=== PATIENT | female | born 1960 | race Caucasian/White ===

== ENCOUNTER 2018-06-13 14:36 | Emergency (ER) | payer OTHER ==
--- NOTE | 2018-06-13 15:56 | RAD REPORT ---
EXAM DESCRIPTION: RAD - Hand Left 3 View - 06/13/2018 3:51 pm CLINICAL HISTORY: Pain;Swelling COMPARISON: No comparisons FINDINGS: No bone or joint abnormality of the left hand is seen.
--- NOTE | 2018-06-13 16:06 | ER ---
Nurse's Notes [facility] Name: Jeanette Valencia Age: 57 yrs Sex: Female : 1960 Arrival Date: 06/13/2018 Time: 14:40 Bed Treatment Private MD: Trino Huston H Diagnosis: Pain in left hand Presentation: 06/13 14:52 Presenting complaint: Patient states: Left hand pain and swelling since this morning. hb Denies injury. Transition of care: patient was not received from another setting of care. Onset of symptoms was June 13, 2018. Risk Assessment: Do you want to hurt yourself or someone else? Patient reports no desire to harm self or others. Initial Sepsis Screen: Does the patient meet any 2 criteria? No. Patient's initial sepsis screen is negative. Does the patient have a suspected source of infection? No. Patient's initial sepsis screen is negative. Care prior to arrival: None. 14:52 Method Of Arrival: Ambulatory hb 14:52 Acuity: CRISTIAN 4 hb Historical: - Allergies: 14:54 Codeine; hb - Home Meds: 14:54 None [Active]; hb - PMHx: 14:54 None; hb - PSHx: 14:54 ; hb - Immunization history:: Adult Immunizations up to date. - Social history:: Smoking status: Patient/guardian denies using tobacco. - Ebola Screening: : No symptoms or risks identified at this time. Screenin:00 Abuse screen: Denies threats or abuse. Denies injuries from another. Nutritional hb screening: No deficits noted. Tuberculosis screening: No symptoms or risk factors identified. Fall Risk None identified. Assessment: 15:00 General: Appears in no apparent distress. Behavior is calm, cooperative. Pain: Pain hb currently is 8 out of 10 on a pain scale. Neuro: Level of Consciousness is awake, alert, obeys commands, Oriented to person, place, time, situation. Cardiovascular: Capillary refill < 3 seconds Patient's skin is warm and dry. Respiratory: Airway is patent Trachea midline Respiratory effort is even, unlabored, Respiratory pattern is regular, symmetrical. GI: No signs and/or symptoms were reported involving the gastrointestinal system. : No signs and/or symptoms were reported regarding the genitourinary system. EENT: No signs and/or symptoms were reported regarding the EENT system. Derm: Skin is intact, is healthy with good turgor. Musculoskeletal: swelling noted to right hand. Vital Signs: 14:53 BP 145 / 93; Pulse 99; Resp 18; Temp 97.8; Pulse Ox 99% on R/A; Pain 8/10; hb ED Course: 14:40 Patient arrived in ED. sb2 14:41 Trino Huston DO is Private Physician. sb2 14:53 Triage completed. hb 14:53 Arm band placed on. hb 14:55 Dominic Montilla PA is PHCP. cp 14:55 Magan Viramontes MD is Attending Physician. cp 15:00 Patient has correct armband on for positive identification. Call light in reach. hb 15:22 Gisella Rosales RN is Primary Nurse. ss 15:23 No provider procedures requiring assistance completed. Patient did not have IV access hb during this emergency room visit. 15:52 XRAY Hand LEFT 3 View In Process Unspecified. EDMS Administered Medications: No medications were administered Outcome: 16:06 Discharge ordered by MD. cp 16:17 Discharged to home ambulatory. ss 16:17 Condition: good 16:17 Discharge instructions given to patient, family, Instructed on discharge instructions, follow up and referral plans. medication usage, Demonstrated understanding of instructions, follow-up care, medications, Prescriptions given X 1. 16:17 Patient left the ED. ss Signatures: Dispatcher [employer] EDMS Gisella Rosales RN RN Dominic Montilla PA PA cp Baxter, Heather, RN RN Natividad Lucia sb2
--- NOTE | 2018-06-13 16:06 | EDPHYS ---
Physician Documentation [facility] Name: Jeanette Valencia Age: 57 yrs Sex: Female : 1960 Arrival Date: 06/13/2018 Time: 14:40 Bed Treatment Private MD: Trino Huston H ED Physician Magan Viramontes HPI: 06/13 15:25 This 57 yrs old Female presents to ER via Ambulatory with complaints of Hand cp Swelling, Hand Pain. 15:25 The patient or guardian reports pain, swelling, tenderness. cp 15:25 The complaints affect the left hypothenar area. cp 15:25 Onset: The symptoms/episode began/occurred today. Modifying factors: the symptoms are cp aggravated by movement. Associated signs and symptoms: Pertinent negatives: cyanosis distally, decreased sensation distally, fever. Severity of symptoms: in the emergency department the symptoms are unchanged. Historical: - Allergies: 14:54 Codeine; hb - Home Meds: 14:54 None [Active]; hb - PMHx: 14:54 None; hb - PSHx: 14:54 ; hb - Immunization history:: Adult Immunizations up to date. - Social history:: Smoking status: Patient/guardian denies using tobacco. - Ebola Screening: : No symptoms or risks identified at this time. ROS: 15:30 Constitutional: Negative for body aches, chills, fever. cp 15:30 ENT: Negative for drainage from ear(s), ear pain, sore throat, difficulty swallowing, cp difficulty handling secretions. 15:30 Cardiovascular: Negative for chest pain, palpitations. 15:30 Respiratory: Negative for cough, shortness of breath, wheezing. 15:30 Abdomen/GI: Negative for abdominal pain, nausea, vomiting, and diarrhea. 15:30 MS/extremity: Positive for pain, swelling, tenderness, of the left hand, Negative for injury or acute deformity, paresthesias. 15:30 Skin: Negative for cellulitis, rash. 15:30 Neuro: Negative for headache, numbness, tingling, weakness. 15:30 All other systems are negative. Exam: 15:35 Constitutional: The patient appears in no acute distress, alert, awake, cp non-diaphoretic, well developed, well nourished. 15:35 Head/Face: Normocephalic, atraumatic. cp 15:35 Eyes: Periorbital structures: appear normal, Conjunctiva: normal, no exudate, no injection, Lids and lashes: appear normal, bilaterally. 15:35 ENT: External ear(s): are unremarkable, Nose: is normal, Mouth: is normal. 15:35 Chest/axilla: Inspection: normal. 15:35 Cardiovascular: Rate: normal. 15:35 Respiratory: the patient does not display signs of respiratory distress, Respirations: normal, no use of accessory muscles, no retractions, no splinting, no tachypnea. 15:35 Musculoskeletal/extremity: Extremities: grossly normal except: noted in the left hand rizo side hypothenar eminence: pain, swelling, There is no evidence of injury. 15:35 Musculoskeletal/extremity: ROM: full active range of motion, in the left hand, Perfusion: the extremity is normally perfused throughout, Sensation intact. 15:35 Skin: cellulitis, is not appreciated, no rash present. Vital Signs: 14:53 BP 145 / 93; Pulse 99; Resp 18; Temp 97.8; Pulse Ox 99% on R/A; Pain 8/10; hb MDM: 14:55 Patient medically screened. cp 16:00 Differential diagnosis: closed fracture, contusion, tendonitis, cellulitis. cp 16:05 Data reviewed: vital signs, nurses notes, radiologic studies, plain films, and as a cp result, I will discharge patient. 16:05 Test interpretation: by ED physician or midlevel provider: plain radiologic studies. cp Counseling: I had a detailed discussion with the patient and/or guardian regarding: the historical points, exam findings, and any diagnostic results supporting the discharge/admit diagnosis, radiology results, the need for outpatient follow up, a family practitioner, to return to the emergency department if symptoms worsen or persist or if there are any questions or concerns that arise at home. 06/13 15:22 Order name: XRAY Hand LEFT 3 View; Complete Time: 16:07 cp 06/13 16:07 Interpretation: Report reviewed. 06/13 16:05 Order name: Wrist Splint: left; Complete Time: 16:08 cp Administered Medications: No medications were administered Disposition: 16:30 Chart complete. cp 17:58 Co-signature as Attending Physician, Magan Viramontes MD. rn Disposition: 06/13/18 16:06 Discharged to Home. Impression: Pain in left hand. - Condition is Stable. - Discharge Instructions: Hand Pain. - Prescriptions for Naprosyn 500 mg Oral Tablet - take 1 tablet by ORAL route 2 times per day take with food; 20 tablet. - Medication Reconciliation Form, Thank You Letter, Antibiotic Education, Prescription Opioid Use, Work release form form. - Follow up: Private Physician; When: 2 - 3 days; Reason: Recheck today's complaints. - Problem is new. - Symptoms have improved. Signatures: Dispatcher [employer] EDMS Magan Viramontes MD MD rn Smirch, Shelby, RN RN ss Dominic Montilla PA PA cp Baxter, Heather, RN RN Corrections: (The following items were deleted from the chart) 16:04 15:25 The complaints affect the hyperthenar area, cp cp 16:17 16:06 06/13/2018 16:06 Discharged to Home. Impression: Pain in left hand. Condition is ss Stable. Forms are Work release form, Medication Reconciliation Form, Thank You Letter, Antibiotic Education, Prescription Opioid Use. Follow up: Private Physician; When: 2 - 3 days; Reason: Recheck today's complaints. Problem is new. Symptoms have improved. cp
== END 2018-06-13 16:17 | disposition home or self-care (01) ==
LOC: ER 14:36
DX: M79.642 Pain in left hand (principal)
CPT/HCPCS: 99283

== ENCOUNTER 2019-05-01 05:43 | Emergency (ER) | payer OTHER ==
--- NOTE | 2019-05-01 06:32 | EDPHYS ---
Physician Documentation [facility] Name: Jeanette Valencia Age: 58 yrs Sex: Female : 1960 Arrival Date: 05/01/2019 Time: 05:48 Bed 13 Private MD: ED Physician Shilo Ramirez HPI: 05/01 06:37 This 58 yrs old Female presents to ER via Ambulatory with complaints of jr8 Congestion, Cough. 06:37 The patient or guardian reports cough, that is intermittent, described as mild, with jr8 productive sputum, that is yellow. Onset: The symptoms/episode began/occurred gradually, 4 day(s) ago. Severity of symptoms: At their worst the symptoms were mild, in the emergency department the symptoms are unchanged. Modifying factors: The symptoms are alleviated by nothing, the symptoms are aggravated by nothing. Associated signs and symptoms: Pertinent positives: rhinorrhea, sore throat. The patient has experienced similar episodes in the past, a few times. The patient has not recently seen a physician. Historical: - Allergies: 05:51 Codeine; jb4 - Home Meds: 05:51 Vitamin D Oral [Active]; Robitussin PE Oral [Active]; jb4 - PMHx: 05:51 Hypertension; jb4 - PSHx: 05:51 ; cateract; jb4 - Immunization history:: Adult Immunizations up to date. - Social history:: Smoking status: Patient/guardian denies using tobacco, Patient/guardian denies using alcohol. - Ebola Screening: : No symptoms or risks identified at this time. ROS: 06:37 Eyes: Negative for injury, pain, redness, and discharge, Neck: Negative for injury, jr8 pain, and swelling, Cardiovascular: Negative for chest pain, palpitations, and edema, Abdomen/GI: Negative for abdominal pain, nausea, vomiting, diarrhea, and constipation, Back: Negative for injury and pain, MS/Extremity: Negative for injury and deformity, Skin: Negative for injury, rash, and discoloration, Neuro: Negative for headache, weakness, numbness, tingling, and seizure. 06:37 ENT: Positive for rhinorrhea, sinus congestion, sore throat. 06:37 Respiratory: Positive for cough, wheezing, Negative for dyspnea on exertion, shortness of breath. Exam: 06:37 Eyes: Pupils equal round and reactive to light, extra-ocular motions intact. Lids and jr8 lashes normal. Conjunctiva and sclera are non-icteric and not injected. Cornea within normal limits. Periorbital areas with no swelling, redness, or edema. ENT: Nares patent. No nasal discharge, no septal abnormalities noted. Tympanic membranes are normal and external auditory canals are clear. Oropharynx with no redness, swelling, or masses, exudates, or evidence of obstruction, uvula midline. Mucous membranes moist. Neck: Trachea midline, no thyromegaly or masses palpated, and no cervical lymphadenopathy. Supple, full range of motion without nuchal rigidity, or vertebral point tenderness. No Meningismus. Cardiovascular: Regular rate and rhythm with a normal S1 and S2. No gallops, murmurs, or rubs. Normal PMI, no JVD. No pulse deficits. Respiratory: Lungs have equal breath sounds bilaterally, clear to auscultation and percussion. No rales, rhonchi or wheezes noted. No increased work of breathing, no retractions or nasal flaring. Abdomen/GI: Soft, non-tender, with normal bowel sounds. No distension or tympany. No guarding or rebound. No evidence of tenderness throughout. Back: No spinal tenderness. No costovertebral tenderness. Full range of motion. Skin: Warm, dry with normal turgor. Normal color with no rashes, no lesions, and no evidence of cellulitis. MS/ Extremity: Pulses equal, no cyanosis. Neurovascular intact. Full, normal range of motion. Neuro: Awake and alert, GCS 15, oriented to person, place, time, and situation. Cranial nerves II-XII grossly intact. Motor strength 5/5 in all extremities. Sensory grossly intact. Cerebellar exam normal. Normal gait. Vital Signs: 05:51 BP 163 / 82; Pulse 82; Resp 16; Temp 98.1(O); Pulse Ox 97% on R/A; Weight 90.72 kg (R); jb4 Height 5 ft. 0 in. (152.40 cm) (R); Pain 2/10; 05:51 Body Mass Index 39.06 (90.72 kg, 152.40 cm) jb4 MDM: 06:19 Patient medically screened. jr8 06:29 Data reviewed: vital signs, nurses notes, and as a result, I will discharge patient. jr8 Data interpreted: Pulse oximetry: on room air is 97 %. Interpretation: normal. Counseling: I had a detailed discussion with the patient and/or guardian regarding: the historical points, exam findings, and any diagnostic results supporting the discharge/admit diagnosis, the need for outpatient follow up, a family practitioner, to return to the emergency department if symptoms worsen or persist or if there are any questions or concerns that arise at home. Administered Medications: No medications were administered Disposition: 07:59 Co-signature as Attending Physician, Shilo Ramirez MD I agree with the assessment and tw4 plan of care. Disposition: 05/01/19 06:31 Discharged to Home. Impression: Acute upper respiratory infection, unspecified, Acute bronchitis. - Condition is Stable. - Discharge Instructions: Acute Bronchitis, Adult, Upper Respiratory Infection, Adult. - Prescriptions for Prednisone 20 mg Oral Tablet - take 1 tablet by ORAL route once daily for 5 days; 5 tablet. Zithromax Z- Luciano 250 mg Oral Tablet - take 1 tablet by ORAL route as directed for 5 days Day 1 - take two (2) tablets one time. Day 2, 3, 4 , 5 take one (1) tablet once daily.; 6 tablet. Albuterol Sulfate 90 mcg/actuation - inhale 1-2 puff by INHALATION route every 4-6 hours; 1 Inhaler. - Medication Reconciliation Form, Thank You Letter, Antibiotic Education, Prescription Opioid Use, Work release form form. - Follow up: Private Physician; When: 1 week; Reason: Recheck today's complaints, Continuance of care, Re-evaluation by your physician. - Problem is new. - Symptoms have improved. Signatures: Cuong Green PA PA jr8 Terry Frye RN RN jb4 Shilo Ramirez MD MD tw4 Corrections: (The following items were deleted from the chart) 06:41 06:31 05/01/2019 06:31 Discharged to Home. Impression: Acute upper respiratory jb4 infection, unspecified; Acute bronchitis. Condition is Stable. Forms are Medication Reconciliation Form, Thank You Letter, Antibiotic Education, Prescription Opioid Use. Follow up: Private Physician; When: 1 week; Reason: Recheck today's complaints, Continuance of care, Re-evaluation by your physician. Problem is new. Symptoms have improved. jr8
--- NOTE | 2019-05-01 06:32 | ER ---
Nurse's Notes [facility] Name: Jeanette Valencia Age: 58 yrs Sex: Female : 1960 Arrival Date: 05/01/2019 Time: 05:48 Bed 13 Private MD: Diagnosis: Acute upper respiratory infection, unspecified;Acute bronchitis Presentation: 05/01 05:51 Presenting complaint: Patient states: I and having cough and congestion and have jb4 noticed I am having a little wheezing. Last time I had this it was bronchitis but this time it doesn't seem as bad. 05:51 Transition of care: patient was not received from another setting of care. Onset of jb4 symptoms was May 01, 2019. Risk Assessment: Do you want to hurt yourself or someone else? Patient reports no desire to harm self or others. Initial Sepsis Screen: Does the patient meet any 2 criteria? No. Patient's initial sepsis screen is negative. Does the patient have a suspected source of infection? No. Patient's initial sepsis screen is negative. Care prior to arrival: None. 05:51 Method Of Arrival: Ambulatory jb4 05:51 Acuity: CRISTIAN 4 jb4 Historical: - Allergies: 05:51 Codeine; jb4 - Home Meds: 05:51 Vitamin D Oral [Active]; Robitussin PE Oral [Active]; jb4 - PMHx: 05:51 Hypertension; jb4 - PSHx: 05:51 ; cateract; jb4 - Immunization history:: Adult Immunizations up to date. - Social history:: Smoking status: Patient/guardian denies using tobacco, Patient/guardian denies using alcohol. - Ebola Screening: : No symptoms or risks identified at this time. Screenin:51 Abuse screen: Denies threats or abuse. Nutritional screening: No deficits noted. jb4 Tuberculosis screening: No symptoms or risk factors identified. Fall Risk None identified. Assessment: 05:51 General: Appears in no apparent distress. comfortable, Behavior is calm, cooperative. jb4 Pain: Complains of pain in chest Pain does not radiate. Pain currently is 2 out of 10 on a pain scale. Quality of pain is described as aching. Neuro: Level of Consciousness is awake, alert, obeys commands, Oriented to person, place, time, situation. Cardiovascular: Patient's skin is warm and dry. Respiratory: Airway is patent Respiratory effort is even, unlabored, Breath sounds are clear bilaterally. GI: No signs and/or symptoms were reported involving the gastrointestinal system. : No signs and/or symptoms were reported regarding the genitourinary system. EENT: No signs and/or symptoms were reported regarding the EENT system. Derm: Skin is intact, Skin is pink, warm \T\ dry. Musculoskeletal: Circulation, motion, and sensation intact. Range of motion: intact in all extremities. 06:41 Reassessment: Patient appears in no apparent distress at this time. Patient and/or jb4 family updated on plan of care and expected duration. Pain level reassessed. Patient is alert, oriented x 3, equal unlabored respirations, skin warm/dry/pink. Vital Signs: 05:51 BP 163 / 82; Pulse 82; Resp 16; Temp 98.1(O); Pulse Ox 97% on R/A; Weight 90.72 kg (R); jb4 Height 5 ft. 0 in. (152.40 cm) (R); Pain 2/10; 05:51 Body Mass Index 39.06 (90.72 kg, 152.40 cm) jb4 ED Course: 05:48 Patient arrived in ED. ds1 05:51 Terry Frye, RN is Primary Nurse. jb4 05:51 Arm band placed on right wrist. jb4 05:51 Patient has correct armband on for positive identification. Bed in low position. Call jb4 light in reach. Side rails up X 1. 06:02 Triage completed. jb4 06:19 [facility] Green [facility]. jr8 06:19 Shilo Ramirez MD is Attending Physician. jr8 06:35 No provider procedures requiring assistance completed. Patient did not have IV access jb4 during this emergency room visit. Administered Medications: No medications were administered Outcome: 06:31 Discharge ordered by . jr8 06:41 Discharged to home ambulatory. jb4 06:41 Condition: stable 06:41 Discharge instructions given to patient, Instructed on discharge instructions, follow up and referral plans. medication usage, Demonstrated understanding of instructions, follow-up care, medications, Prescriptions given X 4. 06:41 Patient left the ED. jb4 Signatures: Zaira Moreno ds1 Cuong Green PA PA jr8 Terry Frye, RN RN jb4
[2019-05-01 06:51] VITALS: BP 163/82; TEMP 98.1; O2SAT 97
== END 2019-05-01 06:41 | disposition home or self-care (01) ==
LOC: ER 05:43
DX: J06.9 Acute upper respiratory infection, unspecified (principal); J20.9 Acute bronchitis, unspecified; Z88.6 Allergy status to analgesic agent
CPT/HCPCS: 99282

== ENCOUNTER 2019-06-14 06:03 | Day surgery (SDC) | payer OTHER ==
--- NOTE | 2019-06-07 10:28 | RAD REPORT ---
EXAM DESCRIPTION: Castro Rosa (2 Views)06/07/2019 10:11 am CLINICAL HISTORY: Preop for rotator cuff surgery COMPARISON: 2014 FINDINGS: The lungs appear clear of acute infiltrate. The heart is normal size IMPRESSION: No acute abnormalities displayed
[2019-06-07 10:51] LABS: Absolute Lymphocytes (CBC) 2.1 K/uL (0.7-4.9); Basophils % 0.7 % (0-1.3); Hematocrit 42.1 % (36.0-45.0); Lymphocytes % 29.6 % (15.3-44.8); MPV 7.6 fL (7.6-11.3); RBC Red Blood Cell Count 4.65 M/uL (3.86-4.86)
[2019-06-07 10:54] LABS: Protime INR 0.94
[2019-06-07 11:50] LABS: Potassium 4.1 mmol/L (3.5-5.1)
--- NOTE | 2019-06-09 06:41 | EKG ---
Test Date: 2019-06-07 Test Time: 09:56:18 [employer] Tech: LUIS A MEASUREMENT RESULTS: Intervals: Rate: 68 [place]: 138 QRSD: 78 QT: 378 QTc: 401 [place]: P: 27 [place]: 138 QRS: 42 T: 25 INTERPRETIVE STATEMENTS: Normal sinus rhythm Normal ECG No previous ECG available for comparison Electronically Signed On 06-09-19 06:41:20 QUALITY ASSURANCE CLERK by Brannon Ritchie
--- OUTSIDE RECORDS SUMMARY | 2019-06-14 06:05 | XMS REPORT ---
:1960 Author Organization [employer] Care Team Providers Name Role Brendon Butler Provider Role Unavailable Allergies, Adverse Reactions, Alerts Substance Reaction Event Type codeine Info Not Available Drug Allergy Problems Problem Type Condition Code Onset Dates Condition Status Assessment Pain, joint, shoulder, right M25.511 Active Problem Tear of right rotator cuff, M75.101 Active unspecified tear extent, unspecified whether traumatic Assessment Tear of right rotator cuff, M75.101 Active unspecified tear extent, unspecified whether traumatic Assessment Bicipital tendinitis of right M75.21 Active shoulder Assessment Subacromial bursitis of right M75.51 Active shoulder joint Assessment Impingement syndrome of right M75.41 Active shoulder Medications Medication Code System Code Instructions Start Date End Date Status Dosage Tylenol [facility] 45859-985 Active not defined 7-20 Alendronate [facility] 58087-168 Active not defined Sodium 1-00 Losartan [facility] 13778-810 Active not defined Potassium 5-22 Calcium NDC 0 Active not defined ibuprofen NDC 0 Active not defined Vitamin D [facility] 52525-976 Active not defined 27 Results No Known Results Summary Purpose [employer] Submission
[2019-06-14] MEDS ORDERED: CEFAZOLIN/SWI 2gm 2 GM/20 ML SYR ONE (06:08)
[2019-06-14] MEDS ORDERED: Ringers Lactate 1,000 ML IV ONE ×2 (06:08→07:15)
[2019-06-14] MEDS ORDERED: propofoL 200 MG/20 ML VIAL IV ONE (06:42)
[2019-06-14] MEDS ORDERED: FENTANYL CITR 100 MCG/2 ML ONE ×2 (06:42→10:27)
[2019-06-14] MEDS ORDERED: LIDOCAINE 2% MPF 5 ML VIAL ONE (06:42)
[2019-06-14] MEDS ORDERED: MIDAZOLAM HCL 2 MG/2 ML INJ ONE (06:42)
[2019-06-14] MEDS ORDERED: NS 0.9% VIAL 20 ML ONE ×2 (06:43→08:46)
[2019-06-14] MEDS ORDERED: dexAMETHasone 10 MG/ML VIAL ONE ×2 (06:43→09:16)
[2019-06-14] MEDS ORDERED: ROCURONIUM 50 MG/5 ML VIAL IV ONE (06:43)
[2019-06-14] MEDS ORDERED: ROPLVACAINE HCL 40 ML ONE (06:49)
[2019-06-14] MEDS ORDERED: EPINEPHRINE/PF 1 MG/ML AMP ONE (07:15)
[2019-06-14] MEDS ORDERED: Phenylephrine HCl 10 MG/ML 1 ML VIAL ONE (08:13)
[2019-06-14] MEDS ORDERED: NS 0.9% VIAL 10 ML ONE (08:13)
[2019-06-14] MEDS ORDERED: KETOROLAC 30 MG/ML INJ ONE (09:16)
[2019-06-14] MEDS ORDERED: ONDANSETRON 4 MG/2 ML VIAL ONE (09:26)
--- NOTE | 2019-06-14 09:55 | P.BOP ---
Preoperative diagnosis: right rotator cuff tear, bicipital tenosynovitis, impingement syndrome Postoperative diagnosis: same Primary procedure: right shoulder arthroscopic rotator cuff repair Secondary procedure: right shoulder arthroscopic biceps tenotomy Other procedure(s): right shoulder arthroscopic subacromial decompression Estimated blood loss: <10 cc Specimen: none Findings: see dictation Anesthesia: General Complications: None Implants: 1 - 5.5 mm Arthrex corkscrew, 2 - 4.75 mm Arthrex swivelock Fluids & blood products: per anesthesia record Transferred to: Recovery Room Condition: Good
--- NOTE | 2019-06-14 10:08 | RAD REPORT ---
EXAM DESCRIPTION: RAD - Shoulder 1 View - 06/14/2019 9:58 am CLINICAL HISTORY: Right shoulder surgery FINDINGS: Frontal view of the right shoulder was obtained. No fracture or dislocation is seen. Narro wing involves the AC joint
[2019-06-14] MEDS ORDERED: PROMETHAZINE INJ 25 MG/ML AMP ONE (10:27)
[2019-06-14 10:57] VITALS: TEMP 96.5
[2019-06-14] MEDS ORDERED: HYDROCODONE/APAP 5/325 MG TAB ONE (11:57)
[2019-06-14 13:18] VITALS: BP 148/72; O2SAT 96
--- NOTE | 2019-06-15 00:51 | OP ---
Date of Procedure: 06/14/2019 Surgeon: Brendon Dumont MD Preoperative Diagnoses: 1.Right shoulder rotator cuff tear. 2.Right shoulder bicipital tenosynovitis. 3.Right shoulder impingement syndrome. Postoperative Diagnoses: 1.Right shoulder rotator cuff tear. 2.Right shoulder bicipital tenosynovitis. 3.Right shoulder impingement syndrome. Procedure Performed: 1.Right shoulder arthroscopic rotator cuff repair. 2.Right shoulder arthroscopic biceps tenotomy. 3.Right shoulder arthroscopic subacromial decompression. Anesthesia: General endotracheal. Fluids: Per Anesthesia record. Estimated Blood Loss: Less than 10 mL. Complications: None. Implants: 1.5.5 mm Arthrex corkscrew. 2.4.75 mm Arthrex SwiveLock. Indication For Procedure: Ms. Erik fisher an is a 58-year-old female who presented to my clinic with s igns, symptoms, and MRI findings consistent with a right shoulder rotator cuff tear, impingement synd niall, and bicipital tenosynovitis. I discussed with the patient at length risks and benefits associa panchito with operative and nonoperative treatment. She expressed understanding and elected to proceed wi operative treatment. Description Of Procedure: After informed consent was obtained, the patient was identified in the pre operative holding area. The right upper extremity was marked. The patient was then taken back to e PACU and underwent an interscalene block to the right upper extremity performed by Anesthesia. She was then transferred to the operating room, transferred to the operating table in the supine fashion , placed under general endotracheal anesthesia. She was then placed in the beach chair position with her extremities well padded. The right upper extremity was then examined and the patient had full r jamaal of motion with no instability noticed. The right upper extremity was then prepped and draped in usual sterile fashion. A time-out was initiated. The correct patient and procedure were confirmed and identified. The patient did receive her preoperative prophylactic antibiotics. A spinal needle was then introduced via the posterior portal position and 30 mL of normal saline was injected into e glenohumeral joint to distend the capsule. The posterior portal was created and an arthroscope was brought in via the posterior portal position. Standard anterior portal was also created. Diagnosti c arthroscopy was performed. Patient is noted to have an intact anterior and inferior labrum as well as posterior labrum. Superior labrum was without significant tearing or fraying. She was noted to have significant bicipital tenosynovitis with fraying of the biceps tendon anchor using the anterior portal, biceps tenotomy was performed using a meniscal biter. The subscapularis was found to be inta ct without tear. No loose bodies were found in the axillary pouch. There was no significant chondro malacia noted of the humeral head and glenoid surface. There was noted to be a full-thickness tear o f the supraspinatus with a tear retracted midhumeral head. A standard lateral portal was created and a Julia cannula was placed and the footprint was then debrided using an arthroscopic shaver to crea te a bleeding bony bed to aid with healing. The arthroscope was then brought to the subacromial spac e and a subacromial bursectomy was performed. A grasper was then used to ensure that there was overa ll good reduction of the supraspinatus onto the footprint. A single medial row anchor was placed usi ng a 5.5 mm Arthrex corkscrew after a stab incision was made just lateral to the acromion. Once the screw was placed, it was tugged and there was good fixation of the screw within the humeral head. Us ing a lateral cannula, a scorpion FastPass suture passer was then used to pass 4 sutures through the torn rotator cuff in an anterior to posterior fashion. These were tied down in a horizontal mattress type fashion. There was overall good reduction of the supraspinatus on to the greater tuberosity. The sutures were then crisscross and 2 lateral anchors 4.75 mm SwivelLocks were placed with good over all reduction of the rotator cuff onto the footprint. A central suture from the anterior-lateral anc hor was then used to make an additional pass through the supraspinatus for additional point of fixati on. Next, the undersurface of the acromion was debrided using an arthroscopic radiofrequency ablator and a subacromial decompression was performed using an arthroscopic bur as well as acromioplasty was performed to remove any inferior osteophytes on the undersurface of the acromion. Once this was com pleted, the arthroscopic instruments were removed without complication. Subcutaneous tissues approxi mated using 2-0 Vicryl. Skin was approximated using a 3-0 Monocryl. Sterile dressings were applied. The patient was placed in a shoulder immobilizer, awakened, and transferred to the PACU in stable c ondition. Postoperative Plan: She will be nonweightbearing of her right upper extremity. Physical Therapy roberto l be consulted and she will begin physical therapy following the large rotator cuff repair protocol a t 6 weeks. PURVI/YANELI Voice ID: [id number] Report ID: [id number]
== END 2019-06-14 13:22 | disposition home or self-care (01) ==
LOC: OR 06:03
PROVIDERS: ATTEND Orthopaedic Surgery Sports Medicine
PROC: 0RHJ44Z Insertion of Internal Fixation Device into Right Shoulder Joint, Percutaneous Endoscopic Approach (ICD-10-PCS; 2019-06-14)
PROC: 0RNJ4ZZ Release Right Shoulder Joint, Percutaneous Endoscopic Approach (ICD-10-PCS; 2019-06-14)
PROC: 0LQ14ZZ Repair Right Shoulder Tendon, Percutaneous Endoscopic Approach (ICD-10-PCS; principal; 2019-06-14 07:30)
DX: M75.101 Unspecified rotator cuff tear or rupture of right shoulder, not specified as traumatic (principal); M75.21 Bicipital tendinitis, right shoulder; M75.41 Impingement syndrome of right shoulder; M75.51 Bursitis of right shoulder; M81.0 Age-related osteoporosis without current pathological fracture; I10 Essential (primary) hypertension; Z88.6 Allergy status to analgesic agent; Z83.3 Family history of diabetes mellitus; Z82.49 Family history of ischemic heart disease and other diseases of the circulatory system
CPT/HCPCS: 93005; 85025; 80048; 36415; 85610; 85730; 71046; 73020; 29827; 29826; J2704; J0171; J2550; J2370; J2250; J3010 ×2; J1100 ×2; J2795; J0690; J7120 ×2; J2405

== ENCOUNTER 2019-11-30 23:01 | Emergency (ER) | payer OTHER ==
--- OUTSIDE RECORDS SUMMARY | 2019-11-30 23:04 | XMS REPORT ---
:1960 Author Organization eClinicalWorks Care Team Providers Name Role Phone Brendon Dumont Provider Role Unavailable Allergies, Adverse Reactions, Alerts Substance Reaction Event Type codeine Info Not Available Drug Allergy Problems Problem Type Condition Code Onset Dates Condition Statu s Assessment Pain, joint, shoulder, right M25.511 Active Problem Tear of right rotator cuff, M75.101 Active unspecified tear extent, unspecified whether traumatic Assessment Tear of right rotator cuff, M75.101 Active unspecified tear extent, unspecified whether traumatic Assessment Bicipital tendinitis of right M75.21 Active shoulder Assessment Impingement syndrome of right M75.41 Active shoulder Medications Medication Code Code Instructions Start End Status Dosage System Date Date Meloxicam [facility] 57448757281 7.5 MG Oral Active not defined Fyviqybln-Gzftrixt-MG [facility] 59172056682 30-2-10 MG/5ML Active not Oral defined Losartan Potassium [facility] [address]-49 Active not defined MethylPREDNISolone [facility] 94408623922 4 MG Oral Active not defined Baclofen [facility] 32960871411 10 MG Oral Active not defined Cephalexin [facility] 49429761304 500 MG Oral Active not defined Benzonatate [facility] 18375930858 100 MG Oral Active not defined Vitamin D [facility] [address] Active not defined ibuprofen [facility] 06403230121 Active not defined Calcium ND 0 Active not defined Alendronate Sodium [facility] 37589082018 70 MG Oral Active not defined Azithromycin [facility] 20084528586 250 MG Oral Active not defined Results No Known Results Summary Purpose eClinicalWorks Submission
--- OUTSIDE RECORDS SUMMARY | 2019-11-30 23:04 | XMS REPORT | Continuity of Care Document ---
:1960 Author Organization [facility] t Address [address] [place] [address] Care Team Providers Name Role Phone Unavailable Unavailable Unavailable Problems Condition Condition Condition Status Onset Resolution Last Treating Co mments Source Name Details Category Date Date Treatment Clinician Date Tear of Tear of Diagnosis Active [facility] cuff, cuff, l unspecifie unspecifie Ou tpati d tear d tear ent extent, extent, Clinics unspecifie unspecifie d whether d whether traumatic traumatic Pain, Pain, Diagnosis Active [facility] joint, joint, [facility] - shoulder, shoulder, [place] [facility] right right [facility] Bicipital Bicipital Diagnosis Active [facility] tendinitis tendinitis [facility] - of right of right Memori a shoulder shoulder l [facility] Impingemen Impingemen Diagnosis Active [facility] t syndrome t syndrome [facility] - of right of right [facility]ori a shoulder shoulder l [facility] ent [facility] Allergies, Adverse Reactions, Alerts Allergy Allergy Status Severity Reaction(s) Onset Inactive Treating Comm ents Source Name Type Date Date Clinician codeine Adverse Active Info Not [facility] Reaction Available [facility] Medications Ordered Filled Start Stop Current Ordering Indication Dosage Frequency Signature Comments Components Source Medication Medication Date Date Medication? Clinician (SIG) Name Name Losartan Losartan Yes Brendon not [facility] Potassium Potassium Dumont defined [facility] Calcium Calcium Yes Brendon not [facility] Dumont defined [facility] Vitamin D Vitamin D Yes [facility]rendon not [facility] Dumont defined [facility] ibuprofen ibuprofen Yes [facility]rendon not [facility] Dumont defined [facility] Meloxicam Meloxicam Yes Brendon not [facility] Dumont defined [facility] Pseudoeph-B Pseudoeph-B Yes Brendon not [facility] romphen-DM romphen-DM Dumont defined [facility] MethylPREDN MethylPREDN Yes Brendon not [facility] ISolone ISolone [facility] defined [facility] Baclofen Baclofen Yes Brendon not [facility] Dumont defined [facility] Cephalexin Cephalexin Yes Brendon not [facility] Dumont defined [facility] Benzonatate Benzonatate Yes Brendon not [facility] Dumont defined [facility] Alendronate Alendronate Yes Brendon not [facility] Sodium [facility]odium [facility]ont defined [facility] Azithromyci Azithromyci Yes Brendon not [facility] n n Dumont defined [facility] Procedures This patient has no known procedures. Encounters Start End Encounter Admission Attending Care Care Encounter Source Date/Time Date/Time Type Type Clinicians Facility Department ID 2019-11-04 2019-11-04 [facility] [id number] [facility] 2019-09-03 2019-09-03 [facility] [id number] [facility] 08[facility] 08[facility] 2019-08-22 2019-08-22 [facility] [id number] [facility] 13:57:00 13:57:00 t [facility] 2019-07-30 2019-07-30 [facility] [id number] [facility] 09:30:00 09:30:00 t [facility] 2019-07-23 2019-07-23 [facility] [id number] [facility] 08:49:00 08:49:00 t [facility] 2019-07-19 2019-07-19 Outpatient Roberta [facility] [id number] [facility] 10:46:00 10:46:00 t [facility] 2019-07-01 2019-07-01 Outpatient Roberta [facility]ant[facility] [id number] [facility] 10:30:00 10:30:00 t [facility] 2019-06-27 2019-06-27 Outpatient Roberta [facility]antig[facility] [id number] [facility] 14:32:00 14:32:00 t [facility] 2019-06-17 2019-06-17 Outpatient Roberta Lantigua [id number] [facility] 11:00:00 11:00:00 t [facility] 2019-06-05 2019-06-05 Outpatient Roberta [facility]ig[facility] [id number] [facility] 08:00:00 08:00:00 t [facility] Results This patient has no known results.
--- OUTSIDE RECORDS SUMMARY | 2019-11-30 23:04 | XMS REPORT ---
[...] Medications Medication Code Code Instructions Start End Date Status Dosage System Date ibuprofen [facility] [id number] Active not defined Calcium NDC 0 Active not defined Losartan [facility] [address]-94 Active not Potassium defined Vitamin D [facility] [address] Active not defined Results No Known Results Summary Purpose eClinicalWorks Submission
--- NOTE | 2019-12-01 00:16 | EDPHYS ---
Physician Documentation [facility] Name: Jeanette Valencia Age: 59 yrs Sex: Female : 1960 Arrival Date: 11/30/2019 Time: 23:04 Bed 14 Private MD: ED Physician Magan Viramontes HPI: 11/29 23:23 This 59 yrs old Female presents to ER via Ambulatory with complaints of Hand kb Injury. 23:23 The patient or guardian reports pain, swelling, tenderness. The complaints affect the kb left wrist diffusely. Context: The problem was sustained outdoors, resulted from a fall. Onset: The symptoms/episode began/occurred at 21:00. Modifying factors: The symptoms are alleviated by nothing, the symptoms are aggravated by nothing. Associated signs and symptoms: The patient has no apparent associated signs or symptoms. The patient has not experienced similar symptoms in the past. The patient has not recently seen a physician. Historical: - Allergies: 23:12 Codeine; ss - PMHx: 23:12 Hypertension; ss - PSHx: 23:12 ; cateract; ss - Immunization history:: Adult Immunizations up to date. - Social history:: Smoking status: Patient denies any tobacco usage or history of. ROS: 23:18 Constitutional: Negative for fever, chills, and weight loss, Cardiovascular: Negative kb for chest pain, palpitations, and edema, Respiratory: Negative for shortness of breath, cough, wheezing, and pleuritic chest pain, Abdomen/GI: Negative for abdominal pain, nausea, vomiting, diarrhea, and constipation, Back: Negative for injury and pain, Neuro: Negative for headache, weakness, numbness, tingling, and seizure. 23:18 MS/extremity: Positive for pain, swelling, tenderness, of the dorsum of left hand and left wrist. Exam: 23:18 Constitutional: This is a well developed, well nourished patient who is awake, alert, kb and in no acute distress. Head/Face: Normocephalic, atraumatic. Chest/axilla: Normal chest wall appearance and motion. Nontender with no deformity. No lesions are appreciated. Cardiovascular: Regular rate and rhythm with a normal S1 and S2. No gallops, murmurs, or rubs. Normal PMI, no JVD. No pulse deficits. Respiratory: Lungs have equal breath sounds bilaterally, clear to auscultation and percussion. No rales, rhonchi or wheezes noted. No increased work of breathing, no retractions or nasal flaring. Abdomen/GI: Soft, non-tender, with normal bowel sounds. No distension or tympany. No guarding or rebound. No evidence of tenderness throughout. Neuro: Awake and alert, GCS 15, oriented to person, place, time, and situation. Cranial nerves II-XII grossly intact. Motor strength 5/5 in all extremities. Sensory grossly intact. Cerebellar exam normal. Normal gait. 23:18 Musculoskeletal/extremity: Extremities: grossly normal except: noted in the left wrist and dorsum of left hand: pain, swelling, tenderness, ROM: intact in all extremities, Circulation is intact in all extremities. Sensation intact. Vital Signs: 23:09 Pulse 79; Resp 15; Temp 97.0(TE); Pulse Ox 97% on R/A; Weight 90.72 kg; Height 5 ft. 0 ss in. (152.40 cm); Pain 6/10; 23:09 Body Mass Index 39.06 (90.72 kg, 152.40 cm) ss MDM: 23:05 Patient medically screened. kb 23:18 Data reviewed: vital signs, nurses notes. Data interpreted: Pulse oximetry: on room air kb is 97 %. Interpretation: normal. Counseling: I had a detailed discussion with the patient and/or guardian regarding: the historical points, exam findings, and any diagnostic results supporting the discharge/admit diagnosis, radiology results, the need for outpatient follow up, a orthopedic surgeon, to return to the emergency department if symptoms worsen or persist or if there are any questions or concerns that arise at home. 11/29 23:07 Order name: Wrist Left (3 View) XRAY kb 11/30 00:14 Order name: Volar Wrist Splint; Complete Time: 00:29 kb Administered Medications: No medications were administered Disposition: 11/30 02:41 Co-signature as Attending Physician, Magan Viramontes MD. rn Disposition: 12/01/19 00:15 Discharged to Home. Impression: Pain in left wrist, Fall on same level from slipping, tripping and stumbling. - Condition is Stable. - Discharge Instructions: Wrist Pain, Cuov-rt-Copr, Wrist Sprain. - Medication Reconciliation Form, Thank You Letter, Antibiotic Education, Prescription Opioid Use, Work release form form. - Follow up: Emergency Department; When: As needed; Reason: Worsening of condition. Follow up: Private Physician; When: 2 - 3 days; Reason: Recheck today's complaints, Continuance of care, Re-evaluation by your physician. Signatures: Dispatcher [employer] EDNH YuvalRobertPhoebe, STORE SPECIALIST-C STORE SPECIALIST-Ckb Magan Viramontes MD MD rn [facility] pe[facility] RN RN Diane Tate RN RN lp1 Corrections: (The following items were deleted from the chart) 00:30 00:15 12/01/2019 00:15 Discharged to Home. Impression: Pain in left wrist; Fall on same lp1 level from slipping, tripping and stumbling. Condition is Stable. Forms are Medication Reconciliation Form, Thank You Letter, Antibiotic Education, Prescription Opioid Use. Follow up: Emergency Department; When: As needed; Reason: Worsening of condition. Follow up: Private Physician; When: 2 - 3 days; Reason: Recheck today's complaints, Continuance of care, Re-evaluation by your physician. kb
--- NOTE | 2019-12-01 00:16 | ER ---
Nurse's Notes [facility] Name: Jeanette Valencia Age: 59 yrs Sex: Female : 1960 Arrival Date: 11/30/2019 Time: 23:04 Bed 14 Private MD: Diagnosis: Pain in left wrist;Fall on same level from slipping, tripping and stumbling Presentation: 11/29 23:09 Chief complaint: Patient states: L hand pain that began after tripping and falling over ss a curb a few hours ago. Coronavirus screen: Proceed with normal triage. Patient denies a cough. Patient denies shortness of breath or difficulty breathing. Patient denies measured and/or subjective temperature greater than 100.4F prior to today's visit. Patient denies travel on a cruise ship or to a country the [facility] currently lists as an affected area. Patient denies contact with known and/or suspected case of COVID-19. Ebola Screen: Patient denies exposure to infectious person. Patient denies travel to an Ebola-affected area in the 21 days before illness onset. Initial Sepsis Screen: Does the patient meet any 2 criteria? No. Patient's initial sepsis screen is negative. Does the patient have a suspected source of infection? No. Patient's initial sepsis screen is negative. Risk Assessment: Do you want to hurt yourself or someone else? Patient reports no desire to harm self or others. Onset of symptoms was November 30, 2019. 23:09 Method Of Arrival: Ambulatory ss 23:09 Acuity: CRISTIAN 4 ss Historical: - Allergies: 23:12 Codeine; ss - PMHx: 23:12 Hypertension; ss - PSHx: 23:12 ; cateract; ss - Immunization history:: Adult Immunizations up to date. - Social history:: Smoking status: Patient denies any tobacco usage or history of. Screenin:13 Abuse screen: Denies threats or abuse. Denies injuries from another. Nutritional lp1 screening: No deficits noted. Tuberculosis screening: No symptoms or risk factors identified. Fall Risk None identified. Assessment: 23:12 General: Appears in no apparent distress. Behavior is calm, cooperative, appropriate lp1 for age. Pain: Complains of pain in left hand. Neuro: No deficits noted. Cardiovascular: Patient's skin is warm and dry. Respiratory: No deficits noted. GI: No signs and/or symptoms were reported involving the gastrointestinal system. : No signs and/or symptoms were reported regarding the genitourinary system. EENT: No signs and/or symptoms were reported regarding the EENT system. Derm: Bruising that is dark purple, on palmar aspect of left forearm. Musculoskeletal: Circulation, motion, and sensation intact. Reports pain in dorsum of left hand. Vital Signs: 23:09 Pulse 79; Resp 15; Temp 97.0(TE); Pulse Ox 97% on R/A; Weight 90.72 kg; Height 5 ft. 0 ss in. (152.40 cm); Pain 6/10; 23:09 Body Mass Index 39.06 (90.72 kg, 152.40 cm) ED Course: 23:04 Patient arrived in ED. bp1 23:05 Phoebe Braakat FNP-C is [facility]. kb 23:05 Magan Viramontes MD is Attending Physician. kb 23:11 Triage completed. ss 23:12 Diane Tate, RN is Primary Nurse. lp1 23:12 Arm band placed on right wrist. ss 23:13 Patient has correct armband on for positive identification. lp1 23:33 Wrist Left (3 View) XRAY In Process Unspecified. EDMS 11/30 00:29 No provider procedures requiring assistance completed. Patient did not have IV access lp1 during this emergency room visit. 00:29 Velcro wrist splint applied to left wrist. lp1 Administered Medications: No medications were administered Outcome: 00:15 Discharge ordered by . kb 00:29 Discharged to home ambulatory. lp1 00:29 Condition: good 00:29 Discharge instructions given to patient, Instructed on discharge instructions, follow up and referral plans. Demonstrated understanding of instructions, follow-up care. 00:30 Patient left the ED. lp1 Signatures: Dispatcher [employer] EDWA Phoebe Barakat FNP-C FNP-Ckb Smirch, Shelby, RN RN Diane Tate, RN RN lp1 Ashlyn Johnson bp1
[2019-12-01 00:35] VITALS: TEMP 97; O2SAT 97
--- NOTE | 2019-12-02 11:51 | RAD REPORT ---
EXAM DESCRIPTION: RAD - Wrist Left 3 View - 11/30/2019 11:32 pm CLINICAL HISTORY: 59-year-old female with pain. TECHNIQUE: Three views LEFT wrist were obtained in AP, lateral and oblique projections COMPARISON: None. FINDINGS: There is no fracture or dislocation. The joint spaces are preserved. Soft tissue swelling of the dorsum of the wrist at the level of the carpometacarpal joint space. Phleboliths versus dermal calcification within the medial forearm soft tissues. Nonspecific linear lucency is identified withi n the mid pole of the scaphoid raising the possibility of artifact of positioning versus nondisplaced fracture. Correlation with dedicated scaphoid imaging may be considered. IMPRESSION: 1. Soft tissue swelling within the dorsum of the wrist at the level of the carpometacarp al joint space. 2. Nonspecific linear lucency is identified within the mid pole of the scaphoid raising the possibili ty of artifact of positioning versus nondisplaced fracture. Correlation with dedicated scaphoid imagi ng may be considered. Electronically signed by: Camilla Lee MD 11/30/2019 11:56 PM CDT Due to temporary technical issues with the PACS/Fluency reporting system, reports are being signed by the in house radiologist without review as a courtesy to ensure prompt reporting. The interpreting r adiologist is fully responsible for the content of the report.
== END 2019-12-01 00:30 | disposition home or self-care (01) ==
LOC: ER 23:01
DX: M25.532 Pain in left wrist (principal); W01.0XXA Fall on same level from slipping, tripping and stumbling without subsequent striking against object, initial encounter; Y93.9 Activity, unspecified; Y92.89 Other specified places as the place of occurrence of the external cause; I10 Essential (primary) hypertension; Z88.5 Allergy status to narcotic agent
CPT/HCPCS: 99283

== ENCOUNTER 2020-08-05 08:43 | Emergency (ER) | payer OTHER ==
--- OUTSIDE RECORDS SUMMARY | 2020-08-05 08:46 | XMS REPORT | Continuity of Care Document ---
:1960 Author Organization [facility] t Address [address] [place] [address] Care Team Providers Name Role Phone Unavailable Unavailable Unavailable Problems Condition Condition Condition Status Onset Resolution Last Treating Co mments Source Name Details Category Date Date Treatment Clinician Date Tear of Tear of Problem Active [facility] - [facility]ator [facility]ator [facility] cuff, cuff, l unspecifie unspecifie Ou tpati d tear d tear ent extent, extent, Clinics unspecifie unspecifie d whether d whether traumatic traumatic Pain in Pain in Diagnosis [facility] Sprain of Sprain of Diagnosis Active [facility] left left [facility] - wrist, wrist, [facility] initial initial l encounter encounter [facility] ent Clinics Allergies, Adverse Reactions, Alerts Allergy [...] ISolone Dumont defined [facility] Baclofen Baclofen Yes Brendon not [facility] Dumont defined [facility] Cephalexin Cephalexin Yes Brendon not [facility] Dumont defined [facility] Benzonatate Benzonatate Yes [facility]rendon not [facility] Dumont defined [facility] Alendronate Alendronate Yes Brendon not [facility] Sodium Sodium [facility]ont defined [facility] Azithromyci Azithromyci Yes Brendon not [facility] n n Dumont defined [facility] Procedures This patient has no known procedures. Encounters Start End Encounter Admission Attending Care Care Encounter Source Date/Time Date/Time Type Type Clinicians Facility Department ID 2019-12-10 2019-12-10 Outpatient Roberta Granadost [id number] [facility] 13:00:00 13:00:00 t [facility] 2019-11-04 2019-11-04 [facility] [id number] [facility] 08:00:00 08:00:00 t [facility] 2019-09-03 2019-09-03 [facility] [id number] [facility] 08:00:00 08:00:00 t [facility] 2019-08-22 2019-08-22 [facility] [id number] [facility] 13:57:00 13:57:00 t [facility] 2019-07-30 2019-07-30 [facility] [id number] [facility] 09:30:00 09:30:00 t [facility] 2019-07-23 2019-07-23 [facility] [id number] [facility] 08:49:00 08:49:00 t [facility] 2019-07-19 2019-07-19 Outpatient Roberta Lantigua [id number] [facility] 10:46:00 10:46:00 t [facility] 2019-07-01 2019-07-01 Outpatient Roberta Lantigua [id number] [facility] 10:30:00 10:30:00 t [facility] 2019-06-27 2019-06-27 Outpatient Roberta Lantigua [id number] [facility] 14:32:00 14:32:00 t [facility] 2019-06-17 2019-06-17 Outpatient Roberta Lantigua [id number] [facility] 11:00:00 11:00:00 t [facility] 2019-06-05 2019-06-05 Outpatient Roberta Lantigua [id number] [facility] 08:00:00 08:00:00 t [facility] Results This patient has no known results.
[2020-08-05] MEDS ORDERED: METHYLPREDNISOLONE 125 MG INJ ONE (09:25)
[2020-08-05] MEDS ORDERED: DIPHENHYDRAMINE 50 MG/ML VIAL ONE (09:25)
[2020-08-05] MEDS ORDERED: FAMOTIDINE 20 MG TAB ONE (09:25)
--- NOTE | 2020-08-05 09:48 | ER ---
Nurse's Notes [facility] Name: Jeanette Valencia Age: 60 yrs Sex: Female : 1960 Arrival Date: 08/05/2020 Time: 08:44 Bed 24 Private MD: Ilia Adorno Diagnosis: Acute allergic reaction;Pruritus Presentation: 08/05 08:54 Chief complaint: Patient states: itching to anne hands and feet that began this morning. aa5 Pt states "I took Aleve and DayQuil this morning". 08:54 Coronavirus screen: At this time, the client does not indicate any symptoms associated aa5 with coronavirus-19. Ebola Screen: Patient negative for fever greater than or equal to 101.5 degrees Fahrenheit, and additional compatible Ebola Virus Disease symptoms. Onset: The symptoms/episode began/occurred acutely. Anaphylaxis evaluation, no signs or symptoms of anaphylaxis were noted. Initial Sepsis Screen: Does the patient meet any 2 criteria? No. Patient's initial sepsis screen is negative. Does the patient have a suspected source of infection? No. Patient's initial sepsis screen is negative. Risk Assessment: Do you want to hurt yourself or someone else? Patient reports no desire to harm self or others. Onset of symptoms was August 05, 2020. 08:54 Method Of Arrival: Ambulatory aa5 08:54 Acuity: CRISTIAN 3 aa5 Historical: - Allergies: 08:55 No Known Allergies; aa5 - PMHx: 08:55 Hypertension; aa5 - PSHx: 08:55 ; cataract; aa5 - Immunization history:: Adult Immunizations up to date. - Social history:: Smoking status: Patient denies any tobacco usage or history of. - Family history:: not pertinent. - Hospitalizations: : No recent hospitalization is reported. Screenin:00 Abuse screen: Denies threats or abuse. Nutritional screening: No deficits noted. aa5 Tuberculosis screening: No symptoms or risk factors identified. Fall Risk None identified. Assessment: 09:00 General: Appears uncomfortable, Behavior is calm, cooperative. Pain: Denies pain. aa5 Neuro: Level of Consciousness is awake, alert, obeys commands, Oriented to person, place, time, situation. Cardiovascular: Heart tones S1 S2 present Rhythm is regular. Respiratory: Airway is patent Respiratory effort is even, unlabored, Respiratory pattern is regular, symmetrical, Breath sounds are clear bilaterally. GI: No signs and/or symptoms were reported involving the gastrointestinal system. : No signs and/or symptoms were reported regarding the genitourinary system. EENT: No signs and/or symptoms were reported regarding the EENT system. Derm: Skin is pink, warm \\T\\ dry. Reports itching. Musculoskeletal: Range of motion: intact in all extremities. 09:45 Reassessment: Patient is alert, oriented x 3, equal unlabored respirations, skin aa5 warm/dry/pink. Patient states feeling better. Patient states symptoms have improved. 09:45 General: Appears comfortable. aa5 Vital Signs: 08:55 BP 189 / 126; Pulse 87; Resp 20 S; Temp 97.2(TE); Pulse Ox 98% on R/A; Weight 90.72 kg aa5 (R); Height 5 ft. 0 in. (152.40 cm) (R); 09:28 BP 174 / 82; Pulse 92; Resp 18 S; Pulse Ox 98% on R/A; aa5 08:55 Body Mass Index 39.06 (90.72 kg, 152.40 cm) aa5 ED Course: 08:44 Patient arrived in ED. am2 08:44 Ilia Adorno MD is Private Physician. am2 08:55 Arm band placed on. aa5 08:55 Patient has correct armband on for positive identification. Bed in low position. Call aa5 light in reach. Side rails up X 1. 08:57 Valarie Mccauley, JADE is Primary Nurse. aa5 08:59 Magan Viramontes MD is Attending Physician. rn 08:59 Triage completed. aa5 09:50 No provider procedures requiring assistance completed. Patient did not have IV access aa5 during this emergency room visit. Administered Medications: 09:12 Drug: SOLU-Medrol 125 mg Route: IM; Site: left gluteus; aa5 09:28 Follow up: Response: No adverse reaction aa5 09:12 Drug: Benadryl 50 mg Route: IM; Site: left deltoid; aa5 09:28 Follow up: Response: No adverse reaction aa5 09:14 Drug: Pepcid 20 mg Route: PO; aa5 09:28 Follow up: Response: No adverse reaction aa5 Outcome: 09:48 Discharge ordered by . rn 09:50 Discharged to home ambulatory. aa5 09:50 Condition: improved 09:50 Discharge instructions given to patient, Instructed on discharge instructions, follow up and referral plans. medication usage, Demonstrated understanding of instructions, follow-up care, medications, Prescriptions given X 1. 09:53 Patient left the ED. aa5 Signatures: Magan Viramontes MD MD rn Calderon, Audri RN RN aa5 Magalis Low am2 Corrections: (The following items were deleted from the chart) 08:59 08:54 Acuity: CRISTIAN 4 aa5 aa5 10:05 10:05 Patient left the ED. aa5 aa5
--- NOTE | 2020-08-05 09:49 | EDPHYS ---
Physician Documentation [facility] Name: Jeanette Valencia Age: 60 yrs Sex: Female : 1960 Arrival Date: 08/05/2020 Time: 08:44 Bed 24 Private MD: Ilia Adorno ED Physician Magan Viramontes HPI: 08/05 09:05 This 60 yrs old Female presents to ER via Ambulatory with complaints of rn Allergic Reaction. 09:05 The patient presents with itching. Onset: The symptoms/episode began/occurred just rn prior to arrival. Associated signs and symptoms: Pertinent positives: The patient has no apparent associated signs or symptoms. Pertinent negatives: abdominal pain, dysphagia, fever, hives, rash, swelling, Syncope. Possible causes: NSAIDs, dayquil. At home the patient or guardian has treated the symptoms with nothing. Severity of symptoms: At their worst the symptoms were mild in the emergency department the symptoms are unchanged. The patient has experienced a previous episode. The patient has not recently seen a physician. Historical: - Allergies: 08:55 No Known Allergies; aa5 - PMHx: 08:55 Hypertension; aa5 - PSHx: 08:55 ; cataract; aa5 - Immunization history:: Adult Immunizations up to date. - Social history:: Smoking status: Patient denies any tobacco usage or history of. - Family history:: not pertinent. - Hospitalizations: : No recent hospitalization is reported. ROS: 09:05 Constitutional: Negative for fever, chills, and weight loss, Eyes: Negative for injury, rn pain, redness, and discharge, Neck: Negative for injury, pain, and swelling, Cardiovascular: Negative for chest pain, palpitations, and edema, Respiratory: Negative for shortness of breath, cough, wheezing, and pleuritic chest pain, Abdomen/GI: Negative for abdominal pain, nausea, vomiting, diarrhea, and constipation, Back: Negative for injury and pain, : Negative for injury, bleeding, discharge, and swelling, MS/Extremity: Negative for injury and deformity, Skin: + itching to hands and feet Neuro: Negative for headache, weakness, numbness, tingling, and seizure. Exam: 09:05 Constitutional: This is a well developed, well nourished patient who is awake, alert, rn and in no acute distress. Scratching both hands Head/Face: Normocephalic, atraumatic. Eyes: Periorbital areas with no swelling, redness, or edema. ENT: No stridor Cardiovascular: Regular rate and rhythm. No pulse deficits. Respiratory: No increased work of breathing, no retractions or nasal flaring. Skin: Warm, dry with normal turgor. Normal color with no rashes, no lesions, and no evidence of cellulitis. MS/ Extremity: Pulses equal, no cyanosis. Neurovascular intact. Full, normal range of motion. Equal circumference. Neuro: Awake and alert, GCS 15, oriented to person, place, time, and situation. Cranial nerves II-XII grossly intact. Motor strength 5/5 in all extremities. Sensory grossly intact. Cerebellar exam normal. Normal gait. Vital Signs: 08:55 BP 189 / 126; Pulse 87; Resp 20 S; Temp 97.2(TE); Pulse Ox 98% on R/A; Weight 90.72 kg aa5 (R); Height 5 ft. 0 in. (152.40 cm) (R); 09:28 BP 174 / 82; Pulse 92; Resp 18 S; Pulse Ox 98% on R/A; aa5 08:55 Body Mass Index 39.06 (90.72 kg, 152.40 cm) aa5 MDM: 08:59 Patient medically screened. rn 09:47 Differential diagnosis: allergic reaction, pruritus. Data reviewed: vital signs, nurses rn notes, and as a result, I will discharge patient. Counseling: I had a detailed discussion with the patient and/or guardian regarding: the historical points, exam findings, and any diagnostic results supporting the discharge/admit diagnosis, the need for outpatient follow up, to return to the emergency department if symptoms worsen or persist or if there are any questions or concerns that arise at home. Response to treatment: the patient's symptoms have mildly improved after treatment, and as a result, I will discharge patient. Special discussion: I discussed with the patient/guardian in detail that at this point there is no indication for admission to the hospital. It is understood, however, that if the symptoms persist or worsen the patient needs to return immediately for re-evaluation. Administered Medications: 09:12 Drug: SOLU-Medrol 125 mg Route: IM; Site: left gluteus; aa5 09:28 Follow up: Response: No adverse reaction aa5 09:12 Drug: Benadryl 50 mg Route: IM; Site: left deltoid; aa5 09:28 Follow up: Response: No adverse reaction aa5 09:14 Drug: Pepcid 20 mg Route: PO; aa5 09:28 Follow up: Response: No adverse reaction aa5 Disposition: 08/05/20 09:48 Discharged to Home. Impression: Acute allergic reaction, Pruritus. - Condition is Stable. - Discharge Instructions: Pruritus. - Prescriptions for Prednisone 20 mg Oral Tablet - take 3 tablet by ORAL route once daily for 5 days; 15 tablet. - Medication Reconciliation Form, Thank You Letter, Antibiotic Education, Prescription Opioid Use, Work release form form. - Follow up: Private Physician; When: As needed; Reason: Recheck today's complaints, Re-evaluation by your physician. - Problem is new. - Symptoms have improved. Signatures: Magan Viramontes MD MD rn Calderon, Audri, RN RN aa5 Corrections: (The following items were deleted from the chart) 09:53 09:48 08/05/2020 09:48 Discharged to Home. Impression: Acute allergic reaction; aa5 Pruritus. Condition is Stable. Forms are Medication Reconciliation Form, Thank You Letter, Antibiotic Education, Prescription Opioid Use. Follow up: Private Physician; When: As needed; Reason: Recheck today's complaints, Re-evaluation by your physician. Problem is new. Symptoms have improved. rn 10:05 09:53 08/05/2020 09:48 Discharged to Home. Impression: Acute allergic reaction; aa5 Pruritus. Condition is Stable. Discharge Instructions: Pruritus. Prescriptions for Prednisone 20 mg Oral Tablet - take 3 tablet by ORAL route once daily for 5 days; 15 tablet. and Forms are Medication Reconciliation Form, Thank You Letter, Antibiotic Education, Prescription Opioid Use, Work release form. Follow up: Private Physician; When: As needed; Reason: Recheck today's complaints, Re-evaluation by your physician. Problem is new. Symptoms have improved. aa5
[2020-08-05 19:16] VITALS: TEMP 97.2; O2SAT 98
[2020-08-05 19:17] VITALS: BP 174/82
== END 2020-08-05 10:05 | disposition home or self-care (01) ==
LOC: ER 08:43
DX: T78.40XA Allergy, unspecified, initial encounter (principal); I10 Essential (primary) hypertension
CPT/HCPCS: 96372; 99283; J1200; J2930

== ENCOUNTER 2021-05-16 18:09 | Emergency (ER) | payer BC ==
--- OUTSIDE RECORDS SUMMARY | 2021-05-16 18:17 | XMS REPORT | Continuity of Care Document ---
:1960 Author Organization [facility] t Address [address] [place] [address] Care Team Providers Name Role Phone Unavailable [...] left wrist left wrist [facility] Sprain of Sprain of Diagnosis [...] ISolone ISolone Dumont defined [facility] Baclofen Baclofen Yes Brendon not [facility] Dumont defined [facility] Cephalexin Cephalexin Yes Brendon not [facility] Dumont defined [facility] Benzonatate Benzonatate Yes [facility]rendon not [facility] Dumont defined [facility]ics Alendronate Alendronate Yes Brendon not [facility] Sodium Sodium Dumont defined [facility] Azithromyci Azithromyci Yes Brendon not [facility] n n Dumont defined [facility] Procedures This patient has no known procedures. Encounters Start End Encounter Admission Attending Care Care Encounter Source Date/Time Date/Time Type Type Clinicians Facility Department ID 2019-12-10 2019-12-10 Outpatient Roberta Granadost [id number] [facility] 13:00:00 13:00:00 t [facility] 2019-11-04 2019-11-04 [facility] [id number] [facility] 08:00:00 08:00:00 t [facility] 2019-09-03 2019-09-03 [facility] [id number] [facility] 08:00:00 08:00:00 t [facility] 2019-08-22 2019-08-22 [facility] [id number] [facility] 13:57:00 13:57:00 t [facility] 2019-07-30 2019-07-30 [facility] [id number] [address] 09:30:00 09:30:00 t [facility] 2019-07-23 2019-07-23 [facility] [id number] [facility] 08:49:00 08:49:00 t [facility] 2019-07-19 2019-07-19 Outpatient Roberta Lantigua [id number] [facility] 10:46:00 10:46:00 t [facility] 2019-07-01 2019-07-01 Outpatient Roberta Lantigua [id number] [facility] 10:30:00 10:30:00 t [facility] 2019-06-27 2019-06-27 Outpatient Roberta Lantigua [id number] [facility] 14:32:00 14:32:00 t [facility] 2019-06-17 2019-06-17 Outpatient Roberta Lantigua [id number] [facility] 11:00:00 11:00:00 t [facility] 2019-06-05 2019-06-05 Outpatient Roberta Lnatigua [id number] [facility] 08:00:00 08:00:00 t [facility] Results This patient has no known results.
[2021-05-16] MEDS ORDERED: LIDOCAINE 1% MPF 5 ML VIAL ONE (18:41)
--- NOTE | 2021-05-16 19:29 | ER ---
Nurse's Notes [facility] Name: Jeanette Valencia Age: 60 yrs Sex: Female : 1960 Arrival Date: 05/16/2021 Time: 18:13 Bed External Waiting Private MD: Ilia Adorno Diagnosis: Laceration without foreign body of finger without damage to nail Presentation: 05/16 18:35 Chief complaint: Patient states: Cut right ring finger on vegetable can. Coronavirus jl7 screen: At this time, the client does not indicate any symptoms associated with coronavirus-19. Ebola Screen: No symptoms or risks identified at this time. Initial Sepsis Screen: Does the patient meet any 2 criteria? No. Patient's initial sepsis screen is negative. Does the patient have a suspected source of infection? No. Patient's initial sepsis screen is negative. Risk Assessment: Do you want to hurt yourself or someone else? Patient reports no desire to harm self or others. Onset of symptoms was May 16, 2021. 18:35 Method Of Arrival: Ambulatory [facility] 18:35 Acuity: CRISTIAN 4 jl7 Triage Assessment: 18:37 General: Appears in no apparent distress. uncomfortable, Behavior is calm, cooperative, jl7 appropriate for age. Pain: Denies pain. Neuro: Level of Consciousness is awake, alert, obeys commands, Oriented to person, place, time, situation. Cardiovascular: Patient's skin is warm and dry. Respiratory: Airway is patent Respiratory effort is even, unlabored, Respiratory pattern is regular, symmetrical. Derm: Skin is pink, warm \T\ dry. Injury Description: Laceration sustained to palmar aspect of middle phalanx of right ring finger is 0.5 to 2.5 cm long, was sustained 30-60 minutes ago. no active bleeding noted at this time. Historical: - Allergies: 18:37 Compazine; jl7 - Home Meds: 18:37 None [Active]; jl7 - PMHx: 18:37 Hypertension; jl7 - PSHx: 18:37 section; jl7 - Immunization history:: Adult Immunizations up to date. - Social history:: Smoking status: Patient denies any tobacco usage or history of. Screenin:09 Abuse screen: Denies threats or abuse. Nutritional screening: No deficits noted. as6 Tuberculosis screening: No symptoms or risk factors identified. Fall Risk None identified. Assessment: 20:08 General: see triage assessment . as6 Vital Signs: 18:35 BP 173 / 87; Pulse 74; Resp 17; Temp 98; Pulse Ox 97% ; Weight 90.72 kg; Height 5 ft. 0 jl7 in. (152.40 cm); Pain 1/10; 20:09 BP 170 / 80; Pulse 78; Resp 16 S; Pulse Ox 100% on R/A; as6 18:35 Body Mass Index 39.06 (90.72 kg, 152.40 cm) jl7 ED Course: 18:13 Patient arrived in ED. mr 18:13 Ilia Adorno MD is Private Physician. mr 18:30 David De RN is Primary Nurse. jl7 18:33 Chaka Crook NP is PHCP. pm1 18:33 Magan Viramontes MD is Attending Physician. pm1 18:37 Triage completed. jl7 18:37 Arm band placed on right wrist. jl7 19:06 Primary Nurse role handed off by David De RN tw5 19:06 Michelle Cardenas is Primary Nurse. tw5 20:09 Assist provider with laceration repair. Patient did not have IV access during this as6 emergency room visit. 20:10 Bed in low position. Call light in reach. as6 05/17 05:32 Attending Physician role handed off by Magan Viramontes MD lp1 05:32 PHCP role handed off by Chaka Crook NP lp1 05:32 Primary Nurse role handed off by Michelle Cardenas lp1 Administered Medications: 05/16 19:07 Drug: Lidocaine (1 %) 5 ml {Note: administered by chaka ZHENG by bedside.} Volume: 5 ml; tw5 Route: Infiltration; 20:11 Follow up: Response: No adverse reaction as6 20:07 Drug: Tetanus-Diphtheria Toxoid Adult 0.5 ml {Front End Architect: curated.by. Exp: as6 10/09/2022. Lot #: [id number]. } Route: IM; Site: left deltoid; 20:10 Follow up: Response: No adverse reaction as6 Outcome: 19:29 Discharge ordered by . pm1 20:09 Discharged to home ambulatory. as6 20:09 Condition: stable 20:09 Discharge instructions given to patient, Instructed on discharge instructions, follow up and referral plans. medication usage, Demonstrated understanding of instructions, follow-up care, medications, Prescriptions given X 1. 20:10 Patient left the ED. as6 05/17 05:37 Patient left the ED. lp1 Signatures: Polly Perez mr TateDiane RN RN lp1 Chaka Crook, ABSTRACTOR ABSTRACTOR pm1 David De RN RN jl7 Michelle Cardenas tw5 Flip Piper RN RN as6
--- NOTE | 2021-05-16 19:30 | EDPHYS ---
Physician Documentation [facility] Name: Jeanette Valencia Age: 60 yrs Sex: Female : 1960 Arrival Date: 05/16/2021 Time: 18:13 Bed External Waiting Private MD: Ilia Adorno ED Physician HPI: 05/16 18:37 This 60 yrs old Female presents to ER via Ambulatory with complaints of Finger pm1 Laceration. 18:37 The patient or guardian reports a laceration. The complaints affect the palmar aspect pm1 of middle phalanx of right ring finger. Context: resulted from Cutting finger on opened can's lid while putting it in the garbage bag. Onset: The symptoms/episode began/occurred just prior to arrival. Modifying factors: The symptoms are alleviated by pressure to area. Associated signs and symptoms: Pertinent negatives: cyanosis distally, decreased sensation distally, numbness distally, tingling distally. Severity of symptoms: in the emergency department the symptoms have improved. The patient has not experienced similar symptoms in the past. The patient has not recently seen a physician. Historical: - Allergies: 18:37 Compazine; jl7 - Home Meds: 18:37 None [Active]; jl7 - PMHx: 18:37 Hypertension; jl7 - PSHx: 18:37 section; jl7 - Immunization history:: Adult Immunizations up to date. - Social history:: Smoking status: Patient denies any tobacco usage or history of. ROS: 18:37 Constitutional: Negative for fever, chills, and weight loss. pm1 18:37 Cardiovascular: Negative for chest pain, palpitations, and edema, Respiratory: Negative for shortness of breath, cough, wheezing, and pleuritic chest pain. 18:37 Neuro: Negative for headache, weakness, numbness, tingling, and seizure. 18:37 MS/extremity: Positive for laceration, of the palmar aspect of middle phalanx of right ring finger, Negative for decreased range of motion, deformity, paresthesias, tingling. 18:37 Skin: Positive for laceration(s), of the palmar aspect of middle phalanx of right ring finger. 18:37 All other systems are negative. Exam: 18:37 Constitutional: This is a well developed, well nourished patient who is awake, alert, pm1 and in no acute distress. Head/Face: Normocephalic, atraumatic. 18:37 Eyes: Exam is negative for acute changes, Extraocular movements: no acute changes, Conjunctiva: no acute changes, no injection, Sclera: no acute changes, icterus, is not appreciated. 18:37 ENT: Exam is negative for acute changes, Mouth: no acute changes, Lips: normal, moist, Oral mucosa: normal, pink and intact, moist. 18:37 Cardiovascular: Exam negative for acute changes, Rate: normal, Rhythm: regular, Pulses: no pulse deficits are appreciated. 18:37 Respiratory: Exam negative for acute changes, respiratory distress, shortness of breath. 18:37 Musculoskeletal/extremity: Extremities: grossly normal except: noted in the palmar aspect of middle phalanx of right ring finger: laceration, There is no evidence of decreased ROM, deformity. 18:37 Skin: Appearance: normal except for affected area, injury, laceration(s), the wound is approximately 1.5 cm(s), with a depth of 0.5 cm(s), of the palmar aspect of middle phalanx of right ring finger. Vital Signs: 18:35 BP 173 / 87; Pulse 74; Resp 17; Temp 98; Pulse Ox 97% ; Weight 90.72 kg; Height 5 ft. 0 jl7 in. (152.40 cm); Pain 1/10; 20:09 BP 170 / 80; Pulse 78; Resp 16 S; Pulse Ox 100% on R/A; as6 18:35 Body Mass Index 39.06 (90.72 kg, 152.40 cm) jl7 Laceration: 19:26 Wound Repair of 1.5cm ( 0.6in ) subcutaneous laceration to right hand and palmar aspect pm1 of middle phalanx of right ring finger. Linear shaped.. Distal neuro/vascular/tendon intact. Anesthesia: Digital block administered with 1 mls of 1% lidocaine. Wound prep: Extensive cleansing with betadine with hibiclenz by nurse, Wound irrigation with saline by me, Wound explored extensively, Copious irrigation. Skin closed with 5 5-0 Prolene using simple sutures and sterile technique. Dressed with Neosporin, 4x4's. Patient tolerated well. MDM: 18:33 Patient medically screened. pm1 19:26 Data reviewed: vital signs. Data interpreted: Pulse oximetry: on room air is 97 %. pm1 Interpretation: normal. 19:26 Counseling: I had a detailed discussion with the patient and/or guardian regarding: the pm1 historical points, exam findings, and any diagnostic results supporting the discharge/admit diagnosis, the need for outpatient follow up, to return to the emergency department if symptoms worsen or persist or if there are any questions or concerns that arise at home. 05/16 18:37 Order name: Dressing - Wound; Complete Time: 20:07 pm1 05/16 18:37 Order name: Gloves, Sterile; Complete Time: 18:40 pm1 05/16 18:37 Order name: Prolene, Sutures; Complete Time: 19:41 pm1 05/16 18:37 Order name: Setup Suture Tray; Complete Time: 18:40 pm1 05/16 19:30 Order name: Splint - Finger; Complete Time: 20:07 pm1 Administered Medications: 19:07 Drug: Lidocaine (1 %) 5 ml {Note: administered by emily ZHENG by bedside.} Volume: 5 ml; tw5 Route: Infiltration; 20:11 Follow up: Response: No adverse reaction as6 20:07 Drug: Tetanus-Diphtheria Toxoid Adult 0.5 ml {Manager Leasing: [employer]. Exp: as6 10/09/2022. Lot #: [id number]. } Route: IM; Site: left deltoid; 20:10 Follow up: Response: No adverse reaction as6 Disposition Summary: 05/16/21 19:29 Discharge Ordered Location: Home pm1 Problem: new pm1 Symptoms: have improved pm1 Condition: Stable pm1 Diagnosis - Laceration without foreign body of finger without damage to nail pm1 Followup: pm1 - With: Emergency Department - When: As needed - Reason: Worsening of condition Followup: pm1 - With: Private Physician - When: 10 - 14 days - Reason: Recheck today's complaints, Continuance of care, Staple/Suture removal, Re-evaluation by your physician Discharge Instructions: - Discharge Summary Sheet pm1 - Laceration Care, Adult pm1 Forms: - Medication Reconciliation Form pm1 - Work release form pm1 - Thank You Letter pm1 - Antibiotic Education pm1 - Prescription Opioid Use pm1 Prescriptions: - Cephalexin 500 mg Oral Capsule - take 1 capsule by ORAL route every 6 hours for 10 days; 40 capsule; Refills: 0, pm1 Product Selection Permitted Addendum: 05/19/2021 19:03 Co-signature as Attending Physician, Magan Viramontes MD I agree with the assessment and r n plan of care. Signatures: Magan Viramontes MD MD rn Marinas, Patrick, PUBLIC HEALTH REPRESENTATIVE PUBLIC HEALTH REPRESENTATIVE pm1 David De RN RN jl7 Michelle Cardenas tw5 Flip Piper RN RN as6
[2021-05-16] MEDS ORDERED: TETANUS & DIPHTHERIA TOX,ADULT 0.5 ML VIAL ONE (19:57)
[2021-05-16 20:15] VITALS: TEMP 98
[2021-05-16 20:16] VITALS: BP 170/80; O2SAT 100
== END 2021-05-17 05:37 | disposition home or self-care (01) ==
LOC: ER 18:09
PROC: 0JQJ0ZZ Repair Right Hand Subcutaneous Tissue and Fascia, Open Approach (ICD-10-PCS; principal; 2021-05-17)
DX: S61.214A Laceration without foreign body of right ring finger without damage to nail, initial encounter (principal); W26.8XXA Contact with other sharp object(s), not elsewhere classified, initial encounter; I10 Essential (primary) hypertension; Z23 Encounter for immunization; Z88.8 Allergy status to other drugs, medicaments and biological substances
CPT/HCPCS: 90471; 90714; 99283

== ENCOUNTER 2022-05-16 09:34 | Emergency (ER) | payer OTHER, SELFPAY ==
--- OUTSIDE RECORDS SUMMARY | 2022-05-16 09:37 | XMS REPORT | Continuity of Care Document ---
:1960 Author Organization [facility] t Address [address] [place] [address] Care Team Providers Name Role Phone Ilia Adorno Attending Clinician Unavailable Problems Condition Condition Condition Status Onset Resolution Last Treating Co mments Source Name Details Category Date Date Treatment Clinician Date Tear of Tear of Problem Active Common right right Spirit rotator rotator - [facility] cuff[facility] cuff, St unspecifie unspecifie Silvia kes d tear d tear Medical extent, extent, Center unspecifie unspecifie d whether d whether traumatic traumatic Pain in Pain in Diagnosis Active Commo n joint of joint of Spirit left wrist left wrist [facility] Sprain of Sprain of Diagnosis Active C ommon left left Spirit wrist, wrist, - [facility] initial initial St encounter [facility] Allergies, Adverse Reactions, Alerts Allergy Allergy Status Severity Reaction(s) Onset Inactive Treating Comm ents Source Name Type Date Date Clinician codeine Adverse Active Info Not Common [facility] Ordered Filled Start Stop Current Ordering Indication Dosage Frequency Signature Comments Components Source Medication Medication Date Date Medication? Clinician (SIG) Name Name Losartan Losartan Yes [place]rend[place] not Comm on Potassium Potassium [place] defined Sp daniella [facility] Calcium Calcium Yes Brendon not Common [place] defined [facility] Vitamin D Vitamin D Yes Brendon not Co mmon [place] defined [facility] ibuprofen ibuprofen Yes [place]rendon not Co mmon [place] defined [facility] Meloxicam Meloxicam Yes Brendon not Co mmon [place] defined [facility] Pseudoeph-B Pseudoeph-B Yes [place]rendon not Common romphen-DM romphen-DM [place] defined [facility] MethylPREDN MethylPREDN Yes [place] not Common ISolone ISolone [place] defined [facility] Baclofen Baclofen Yes [place]on not Comm on [place] defined [facility] Cephalexin Cephalexin Yes [place]on not Common [place] defined [facility] Benzonatate Benzonatate Yes Brendon not Common [place] defined [facility] Alendronate Alendronate Yes [place]rendon not Common Sodium Sodium [place] defined [facility] Azithromyci Azithromyci Yes [place]rendon not Common n n [place] defined [facility] Procedures This patient has no known procedures. Encounters Start End Encounter Admission Attending Care Care Encounter Source Date/Time Date/Time Type Type Clinicians Facility Department ID 2021-06-23 Outpatient [place], [facility] [id number] Common 11:31:20 Ilia 38720 [facility] 2021-06-23 Outpatient [place], [facility] [id number] Common 11:17:08 Ilia 63815 [facility] 2021-06-23 Outpatient [place], [facility] [id number] Common 10:58:50 Ilia [id number] [facility] 2019-12-10 2019-12-10 [facility] [id number] Common 13:00:00 13:00:00 [facility] 2019-11-04 2019-11-04 [facility] [id number] Common 08:00:00 08:00:00 t Bone Bone and Spiri t and Joint Joint - [facility] 2019-09-03 2019-09-03 [facility] [id number] Common 08:00:00 08:00:00 t Bone Bone and Spiri t and Joint Joint - [facility] 2019-08-22 2019-08-22 [facility] [id number] Common 13:57:00 13:57:00 t Bone Bone and Spiri t and Joint Joint - [facility] 2019-07-30 2019-07-30 [facility] [id number] Common 09:30:00 09:30:00 t Bone Bone and Spiri t and Joint Joint - [facility] 2019-07-23 2019-07-23 Outpatient Roberta [facility]antig[facility] [id number] Common 08:49:00 08:49:00 t Bone Bone and Spiri t and Joint Joint - [facility] 2019-07-19 2019-07-19 Outpatient Roberta Lantigua [id number] Common 10:46:00 10:46:00 t Bone Bone and Spiri t and Joint Joint - [facility] 2019-07-01 2019-07-01 Outpatient Roberta Lantigua [id number] Common 10:30:00 10:30:00 t Bone Bone and Spiri t and Joint Joint - [facility] 2019-06-27 2019-06-27 Outpatient Roberta Lantigua [id number] Common 14:32:00 14:32:00 t Bone Bone and Spiri t and Joint Joint - [facility] 2019-06-17 2019-06-17 Outpatient Roberta Lantigua [id number] Common 11:00:00 11:00:00 t Bone Bone and Spiri t and Joint Joint - [facility] 2019-06-05 2019-06-05 Outpatient Roberta Lantigua [id number] Common 08:00:00 08:00:00 t Bone Bone and Spiri t and Joint Joint - [facility] Results This patient has no known results.
[2022-05-16 10:33] LABS: SARS-COV-2 RT PCR NEGATIVE (NEGATIVE)
--- NOTE | 2022-05-16 11:16 | EDPHYS ---
Physician Documentation [facility] Name: Jeanette Valencia Age: 61 yrs Sex: Female : 1960 Arrival Date: 05/16/2022 Time: 09:39 Bed 10 Private MD: ED Physician Rafa Paul HPI: 05/16 09:57 This 61 yrs old Female presents to ER via Ambulatory with complaints of Cough, snw Congestion, Vomiting/Diarrhea. 09:57 The patient or guardian reports cough, flu symptoms, low-grade fever, myalgias. Onset: snw The symptoms/episode began/occurred acutely, 3 day(s) ago, and became persistent. Severity of symptoms: At their worst the symptoms were mild. Associated signs and symptoms: Pertinent positives: nausea, vomiting. The patient has not experienced similar symptoms in the past. The patient has not recently seen a physician. Historical: - Allergies: 09:52 Compazine; 5 - PMHx: 09:52 Hypertension; 5 - PSHx: 09:52 section; [facility] - Immunization history:: Adult Immunizations up to date. - Social history:: Smoking status: Patient denies any tobacco usage or history of. ROS: 09:56 Eyes: Negative for injury, pain, redness, and discharge, ENT: Negative for injury, snw pain, and discharge, Neck: Negative for injury, pain, and swelling, Cardiovascular: Negative for chest pain, palpitations, and edema. 09:56 Back: Negative for injury and pain, : Negative for injury, bleeding, discharge, and swelling, MS/Extremity: Negative for injury and deformity, Skin: Negative for injury, rash, and discoloration. 09:56 Psych: Negative for depression, anxiety, suicide ideation, homicidal ideation, and hallucinations. 09:56 Constitutional: Positive for body aches, fatigue, malaise. 09:56 Respiratory: Positive for cough, wheezing. 09:56 Abdomen/GI: Positive for nausea, vomiting, and diarrhea. 09:56 Neuro: Positive for headache. Exam: 09:56 Constitutional: This is a well developed, well nourished patient who is awake, alert, snw and in no acute distress. Head/Face: Normocephalic, atraumatic. Eyes: Pupils equal round and reactive to light, extra-ocular motions intact. Lids and lashes normal. Conjunctiva and sclera are non-icteric and not injected. Cornea within normal limits. Periorbital areas with no swelling, redness, or edema. ENT: Nares patent. No nasal discharge, no septal abnormalities noted. Tympanic membranes are normal and external auditory canals are clear. Oropharynx with no redness, swelling, or masses, exudates, or evidence of obstruction, uvula midline. Mucous membranes moist. Neck: Trachea midline, no thyromegaly or masses palpated, and no cervical lymphadenopathy. Supple, full range of motion without nuchal rigidity, or vertebral point tenderness. No Meningismus. Chest/axilla: Normal chest wall appearance and motion. Nontender with no deformity. No lesions are appreciated. Cardiovascular: Regular rate and rhythm with a normal S1 and S2. No gallops, murmurs, or rubs. Normal PMI, no JVD. No pulse deficits. Respiratory: Lungs have equal breath sounds bilaterally, clear to auscultation and percussion. No rales, rhonchi or wheezes noted. No increased work of breathing, no retractions or nasal flaring. Abdomen/GI: Soft, non-tender, with normal bowel sounds. No distension or tympany. No guarding or rebound. No evidence of tenderness throughout. Back: No spinal tenderness. No costovertebral tenderness. Full range of motion. Skin: Warm, dry with normal turgor. Normal color with no rashes, no lesions, and no evidence of cellulitis. MS/ Extremity: Pulses equal, no cyanosis. Neurovascular intact. Full, normal range of motion. Neuro: Awake and alert, GCS 15, oriented to person, place, time, and situation. Cranial nerves II-XII grossly intact. Motor strength 5/5 in all extremities. Sensory grossly intact. Cerebellar exam normal. Normal gait. Psych: Awake, alert, with orientation to person, place and time. Behavior, mood, and affect are within normal limits. Vital Signs: 09:51 Resp 18; Weight 90.72 kg; Height 5 ft. 0 in. (152.40 cm); Pain 0/10; jh5 10:01 BP 133 / 79; Pulse 76; Resp 17; Temp 98.9; Pulse Ox 98% ; Weight 90.72 kg; Height 5 ft. rs5 0 in. (152.40 cm); 10:01 Body Mass Index 39.06 (90.72 kg, 152.40 cm) rs5 MDM: 10:05 Data reviewed: vital signs, nurses notes. Data interpreted: Pulse oximetry: on room air snw is 98 %. Interpretation: normal. Counseling: I had a detailed discussion with the patient and/or guardian regarding: the historical points, exam findings, and any diagnostic results supporting the discharge/admit diagnosis, lab results, the need for outpatient follow up, for definitive care. 10:07 Patient medically screened. snw 05/16 09:44 Order name: COVID-19/FLU A+B/RSV; Complete Time: 11:15 snw Administered Medications: No medications were administered Disposition: 13:42 Co-signature as Attending Physician, Rafa Paul DO I was immediately available on-site ms3 in the Emergency Department for consultation in the care of the patient. Disposition Summary: 05/16/22 11:16 Discharge Ordered Location: Home snw Condition: Stable snw Diagnosis - Influenza due to identified novel influenza A virus snw Followup: snw - With: Emergency Department - When: As needed - Reason: Worsening of condition Followup: snw - With: Private Physician - When: 1 week - Reason: Recheck today's complaints, Continuance of care, Re-evaluation by your physician Discharge Instructions: - Discharge Summary Sheet snw - Fever, Adult snw - Influenza, Adult snw - Aspirin and Your Heart snw Forms: - Medication Reconciliation Form snw - Thank You Letter snw - Antibiotic Education snw - Prescription Opioid Use snw - Work release form snw Prescriptions: - Zyrtec 10 mg Oral Tablet - take 1 tablet by ORAL route once daily As needed; 20 tablet; Refills: 0, snw Product Selection Permitted - Pepcid 20 mg Oral Tablet - take 1 tablet by ORAL route once daily; 20 tablet; Refills: 0, Product snw Selection Permitted Signatures: Dispatcher [employer] Ghazala Cloud FNP-C FNP-Rafa Garcia DO DO ms3 Sonam Waters, RN RN jh5
--- NOTE | 2022-05-16 11:16 | ER ---
Nurse's Notes [facility] Name: Jeanette Valencia Age: 61 yrs Sex: Female : 1960 Arrival Date: 05/16/2022 Time: 09:39 Bed 10 Private MD: Diagnosis: Influenza due to identified novel influenza A virus Presentation: 05/16 09:51 Chief complaint: Patient states: started feeling bad on , worse Monday with jh5 cough, congestion, body aches; laid around all weekend. Coronavirus screen: Vaccine status: Patient reports receiving the 2nd dose of the covid vaccine. Client denies travel out of the [place] in the last 14 days. Ebola Screen: Patient negative for fever greater than or equal to 101.5 degrees Fahrenheit, and additional compatible Ebola Virus Disease symptoms Patient denies exposure to infectious person. Patient denies travel to an Ebola-affected area in the 21 days before illness onset. Initial Sepsis Screen: Does the patient meet any 2 criteria? No. Patient's initial sepsis screen is negative. Does the patient have a suspected source of infection? No. Patient's initial sepsis screen is negative. Risk Assessment: Do you want to hurt yourself or someone else? Patient reports no desire to harm self or others. 09:51 Method Of Arrival: Ambulatory [facility] 09:51 Acuity: CRISTIAN 4 5 Triage Assessment: 09:52 General: Appears uncomfortable, Behavior is calm, cooperative, appropriate for age. 5 Pain: Denies pain. Respiratory: Historical: - Allergies: 09:52 Compazine; jh5 - PMHx: 09:52 Hypertension; 5 - PSHx: 09:52 section; 5 - Immunization history:: Adult Immunizations up to date. - Social history:: Smoking status: Patient denies any tobacco usage or history of. Screenin:35 [facility] ED Fall Risk Assessment (Adult) History of falling in the last 3 months, jl7 including since admission No falls in past 3 months (0 pts). Humpty Dumpty Scale Fall Assessment Tool (age< 18yrs) Gender Female (1 pt). Abuse screen: Denies threats or abuse. Denies injuries from another. Nutritional screening: No deficits noted. Tuberculosis screening: No symptoms or risk factors identified. Fall Risk Mental Status- Oriented to own ability (0 pts). Vital Signs: 09:51 Resp 18; Weight 90.72 kg; Height 5 ft. 0 in. (152.40 cm); Pain 0/10; jh5 10:01 BP 133 / 79; Pulse 76; Resp 17; Temp 98.9; Pulse Ox 98% ; Weight 90.72 kg; Height 5 ft. rs5 0 in. (152.40 cm); 10:01 Body Mass Index 39.06 (90.72 kg, 152.40 cm) rs5 ED Course: 09:39 Patient arrived in ED. mr 09:43 Ghazala Fuentes FNP-C is [facility] snw 09:43 Rafa Paul DO is Attending Physician. snw 09:52 Triage completed. 5 09:52 Arm band placed on right wrist. 5 10:20 David De, RN is Primary Nurse. jl7 10:29 COVID-19/FLU A+B/RSV Sent. rs5 11:35 Patient has correct armband on for positive identification. jl7 11:35 No provider procedures requiring assistance completed. Patient did not have IV access jl7 during this emergency room visit. Administered Medications: No medications were administered Medication: 11:35 VIS not applicable for this client. jl7 Outcome: 11:16 Discharge ordered by . snw 11:35 Discharged to home ambulatory. jl7 11:35 Condition: stable 11:35 Discharge instructions given to patient, Instructed on discharge instructions, follow up and referral plans. medication usage, Demonstrated understanding of instructions, follow-up care, medications, Prescriptions given X 2. 11:36 Patient left the ED. jl7 Signatures: Ghazala Fuentes FNP-C FNP-Tricia Polly Perez mr David De, RN RN jl7 Sonam Waters RN RN 5 Harman Lauren 5
[2022-05-16 11:40] VITALS: BP 133/79; TEMP 98.9; O2SAT 98
== END 2022-05-16 11:36 | disposition home or self-care (01) ==
LOC: ER 09:34
DX: J10.1 Influenza due to other identified influenza virus with other respiratory manifestations (principal); I10 Essential (primary) hypertension; Z88.1 Allergy status to other antibiotic agents; Z20.822 Contact with and (suspected) exposure to COVID-19
CPT/HCPCS: 0241U; 99283

== ENCOUNTER 2023-03-28 11:00 | Emergency (ER) | payer SELFPAY ==
--- OUTSIDE RECORDS SUMMARY | 2023-03-28 11:03 | XMS REPORT | Continuity of Care Document ---
:1960 Author Organization [facility] t Address [address] [facility] [address] [place] [address] Care Team Providers Name Role Phone Ilia Adorno Attending Clinician Unavailable [email or web address] Attending Clinician Unavailable [email or web address] Admitting Clinician Unavailable Problems Condition Condition Condition Status [...] joint of Spirit left wrist left wrist [facility] Sprain of Sprain of Diagnosis Active [facility] left left Spirit wrist, wrist, - [facility] initial initial St encounter [facility] Allergies, Adverse Reactions, Alerts Allergy Allergy Status Severity Reaction(s) Onset Inactive Treating Comm ents Source Name Type Date Date Clinician codeine Adverse Active Info Not Common Reaction Available Spiri [facility] Medications Ordered Filled Start Stop Current Ordering Indication Dosage Frequency Signature Comments Components Source Medication Medication Date Date Medication? Clinician (SIG) Name Name Losartan Losartan Yes Brendon not Comm on Potassium Potassium Dumont defined Sp daniella [facility] Calcium Calcium Yes Brendon not Common Dumont defined [facility] Vitamin D Vitamin D Yes Brendon not Co mmon Dumont defined [facility] ibuprofen ibuprofen Yes Brendon not Co mmon Dumont defined [facility] Meloxicam Meloxicam Yes Brendon not Co mmon Dumont defined [facility] Pseudoeph-B Pseudoeph-B Yes Brendon not Common romphen-DM romphen-DM Dumont defined [facility] MethylPREDN MethylPREDN Yes Brendon not Common ISolone ISolone Dumont defined [facility] Baclofen Baclofen Yes Brendon not Comm on Dumont [facility] Cephalexin Cephalexin Yes Brendon not Common Dumont defined [facility] Benzonatate Benzonatate Yes Brendon not Common Dumont defined [facility] Alendronate Alendronate Yes Brendon not Common Sodium Sodium Dumont defined [facility] Azithromyci Azithromyci Yes Brendon not Common n n Dumont [facility] Procedures This patient has no known procedures. Encounters Start End Encounter Admission Attending Care Care Encounter Source Date/Time Date/Time Type Type Clinicians Facility Department ID 2021-06-23 Outpatient [place] [id number] Common 11:31:20 Ilia [address] [facility] 2021-06-23 Outpatient [place], STLMLC ST[facility] [id number] Common 11:17:08 Ilia Bray [facility] 2021-06-23 Outpatient [place], STLMLC STLC [id number] Common 10:58:50 Ilia [id number] [facility] 2023-03-24 2023-03-24 Outpatient [email or web address] PRIV PRIV [id number] [facility] 00:00:00 00:00:00 diyala_S [id number] Medic al 2019-12-10 2019-12-10 [facility] [id number] Common 13:00:00 13:00:00 t [facility] 2019-11-04 2019-11-04 [facility] [id number] Common 08:00:00 08:00:00 t Bone Bone and Spiri t and [facility] - [facility] 2019-09-03 2019-09-03 [facility] [id number] Common 08:00:00 08:00:00 t Bone Bone and Spiri t and Joint [facility] - [facility] 2019-08-22 2019-08-22 [facility] [id number] Common 13:57:00 13:57:00 t Bone Bone and Spiri t and Joint [facility] - [facility] 2019-07-30 2019-07-30 [facility] [id number] Common 09:30:00 09:30:00 t Bone Bone and Spiri t and Joint [facility] - [facility] 2019-07-23 2019-07-23 [facility] [id number] Common 08:49:00 08:49:00 t Bone Bone and Spiri t and Joint [facility] - [facility] 2019-07-19 2019-07-19 [facility] [id number] Common 10:46:00 10:46:00 t Bone Bone and Spiri t and Joint [facility] - [facility] 2019-07-01 2019-07-01 [facility] [id number] Common 10:30:00 10:30:00 t Bone Bone and Spiri t and Joint [facility] - [facility] 2019-06-27 2019-06-27 [facility] [id number] Common 14:32:00 14:32:00 t Bone Bone and Spiri t and Joint [facility] - [facility] 2019-06-17 2019-06-17 [facility] [id number] Common 11:00:00 11:00:00 t Bone Bone and Spiri t and Joint [facility] - [facility] 2019-06-05 2019-06-05 [facility] [id number] Common 08:00:00 08:00:00 t Bone Bone and Spiri t and Joint [facility] - [facility] Results This patient has no known results.
[2023-03-28 11:43] LABS: SARS-CoV-2 Antigen Rapid Res Negative (Negative)
--- NOTE | 2023-03-28 12:04 | RAD REPORT ---
EXAM DESCRIPTION: RAD - Chest Pa And Lat (2 Views) - 03/28/2023 11:56 am CLINICAL HISTORY: COUGH COMPARISON: Chest Pa And Lat (2 Views) dated 06/07/2019; CHEST PA AND LAT 2 VIEW dated 12/01/2014; CHES T PA AND LAT 2 VIEW dated 01/30/2008 FINDINGS: Lines: None. Lungs: No evidence of edema or pneumonia. Pleural: No significant pleural effusions or pneumothorax. Cardiac: The heart size is within normal limits. Mediastinum: Within normal limits. Bones: No acute fractures. Other: None IMPRESSION: No acute cardiopulmonary disease.
--- NOTE | 2023-03-28 12:25 | EDPHYS ---
Physician Documentation [facility] Name: Jeanette Valencia Age: 62 yrs Sex: Female : 1960 Arrival Date: 03/28/2023 Time: 11:00 Bed 11 Private MD: ED Physician Magan Viramontes HPI: 03/28 11:19 This 62 yrs old Female presents to ER via Unassigned with complaints of Flu Symptoms. rn 11:19 The patient or guardian reports cough, flu symptoms. Onset: The symptoms/episode rn began/occurred 2 day(s) ago. Severity of symptoms: At their worst the symptoms were mild, in the emergency department the symptoms are unchanged. Modifying factors: The symptoms are alleviated by nothing, the symptoms are aggravated by nothing. Associated signs and symptoms: Pertinent positives: fever, rhinorrhea, sore throat, Pertinent negatives: chest pain. The patient has experienced a previous episode. The patient has not recently seen a physician. Historical: - Allergies: 11:22 Compazine; hb - PMHx: 11:22 Hypertension; hb - PSHx: 11:22 section; hb - Immunization history:: Adult Immunizations up to date. - Family history:: not pertinent. - Social history:: Smoking status: Patient denies any tobacco usage or history of. - Hospitalizations: : No recent hospitalization is reported. ROS: 11:19 Constitutional: Positive for subjective fever and chills, positive for myalgias Eyes: rn Negative for injury, pain, redness, and discharge, ENT: Positive for sore throat and runny nose Cardiovascular: Negative for chest pain, palpitations, and edema, Respiratory: Positive for cough, negative for shortness of breath Abdomen/GI: Negative for abdominal pain, nausea, vomiting, diarrhea, and constipation, MS/Extremity: Negative for injury and deformity, Skin: Negative for injury, rash, and discoloration, Neuro: Negative for headache, weakness, numbness, tingling, and seizure, Exam: 11:19 Constitutional: This is a well developed, well nourished patient who is awake, alert, rn and in no acute distress. Head/Face: Normocephalic, atraumatic. Eyes: Pupils equal round and reactive to light, extra-ocular motions intact. Cardiovascular: Regular rate and rhythm. No pulse deficits. Respiratory: No increased work of breathing, no retractions or nasal flaring. Abdomen/GI: Soft, non-tender Skin: Warm, dry MS/ Extremity: Pulses equal, no cyanosis. Neuro: Awake and alert, GCS 15 Vital Signs: 11:18 BP 180 / 81; Pulse 88; Resp 18; Temp 98.2(O); Pulse Ox 98% on R/A; Weight 90.72 kg; hb Height 5 ft. 0 in. ; Pain 3/10; 12:40 BP 152 / 67; Pulse 77; Resp 17; Pulse Ox 100% ; cp4 11:18 Body Mass Index 39.06 (90.72 kg, 152.4 cm) hb 11:18 Pain Scale: Adult hb MDM: 11:05 Patient medically screened. rn 12:22 Differential Diagnosis: Bronchitis Influenza Upper Respiratory Infection Sinusitis rn Viral Syndrome Pneumonia. Data reviewed: vital signs, nurses notes, lab test result(s), radiologic studies, plain films, and as a result, I will discharge patient. 12:22 Counseling: I had a detailed discussion with the patient and/or guardian regarding the rn historical points, exam findings, and any diagnostic results supporting the discharge/admit diagnosis, lab results, radiology results, the need for outpatient follow up, to return to the emergency department if symptoms worsen or persist or if there are any questions or concerns that arise at home. Special discussion: I discussed with the patient/guardian in detail that at this point there is no indication for admission to the hospital. It is understood, however, that if the symptoms persist or worsen the patient needs to return immediately for re-evaluation. 03/28 11:05 Order name: SARS RAPID; Complete Time: 11:53 rn 03/28 11:05 Order name: Flu; Complete Time: 11:53 rn 03/28 11:17 Order name: XRAY Chest Pa And Lat (2 Views); Complete Time: 12:08 rn Administered Medications: No medications were administered Disposition Summary: 03/28/23 12:24 Discharge Ordered Notes: Location: Home rn Problem: new rn Symptoms: have improved rn Condition: Stable rn Diagnosis - Acute upper respiratory infection, unspecified rn Followup: rn - With: Private Physician - When: As needed - Reason: Recheck today's complaints, Re-evaluation by your physician Discharge Instructions: - Discharge Summary Sheet rn - Upper Respiratory Infection, Adult rn Forms: - Medication Reconciliation Form rn - Thank You Letter rn - Antibiotic charge rn - Prescription Opioid Use rn - Patient Portal Instructions rn - Leadership Thank You Letter rn - Work release form cp4 Prescriptions: - Zithromax Z-Luciano 250 mg Oral Tablet - take 1 tablet ORAL route as directed for 5 days Day 1 - take two (2) tablets rn one time. Day 2, 3, 4 , 5 take one (1) tablet once daily.; 6 tablet; Refills: 0, Product Selection Permitted Signatures: Dispatcher [employer] EDMagan Dai MD MD rn Baxter, Heather, RN RN hb Potter, Christina cp4
--- NOTE | 2023-03-28 12:25 | ER ---
Nurse's Notes [facility] Name: Jeanette Valencia Age: 62 yrs Sex: Female : 1960 Arrival Date: 03/28/2023 Time: 11:00 Bed 11 Private MD: Diagnosis: Acute upper respiratory infection, unspecified Presentation: 03/28 11:18 Chief complaint: Runny nose, cough, and pain with cough x 4 days. Coronavirus screen: hb Client presents with at least one sign or symptom that may indicate coronavirus-19. Standard/surgical mask placed on the client. Provider contacted for isolation considerations. Ebola Screen: No symptoms or risks identified at this time. Initial Sepsis Screen: Does the patient meet any 2 criteria? No. Patient's initial sepsis screen is negative. Does the patient have a suspected source of infection? No. Patient's initial sepsis screen is negative. Risk Assessment: Do you want to hurt yourself or someone else? Patient reports no desire to harm self or others. Onset of symptoms was March 24, 2023. 11:18 Method Of Arrival: Ambulatory 11:18 Acuity: CRISTIAN 4 hb Historical: - Allergies: 11:22 Compazine; hb - PMHx: 11:22 Hypertension; hb - PSHx: 11:22 section; hb - Immunization history:: Adult Immunizations up to date. - Family history:: not pertinent. - Social history:: Smoking status: Patient denies any tobacco usage or history of. - Hospitalizations: : No recent hospitalization is reported. Screenin:23 [facility] ED Fall Risk Assessment (Adult) History of falling in the last 3 months, cp4 including since admission No falls in past 3 months (0 pts) Confusion or Disorientation No (0 pts) Intoxicated or Sedated No (0 pts) Impaired Gait No (0 pts) Mobility Assist Device Used No (0 pt) Altered Elimination No (0 pt) Score/Fall Risk Level 0 - 2 = Low Risk Oriented to surroundings, Maintained a safe environment, Educated pt \T\ family on fall prevention, incl call for assistance when getting out of bed, Hourly rounding (assess needs \T\ fall precautionary measures) done. Abuse screen: Denies threats or abuse. Nutritional screening: No deficits noted. Tuberculosis screening: No symptoms or risk factors identified. Assessment: 11:23 General: Appears in no apparent distress. Behavior is calm, cooperative, appropriate cp4 for age. Pain: Complains of pain in chest. Vital Signs: 11:18 BP 180 / 81; Pulse 88; Resp 18; Temp 98.2(O); Pulse Ox 98% on R/A; Weight 90.72 kg; hb Height 5 ft. 0 in. ; Pain 3/10; 12:40 BP 152 / 67; Pulse 77; Resp 17; Pulse Ox 100% ; cp4 11:18 Body Mass Index 39.06 (90.72 kg, 152.4 cm) hb 11:18 Pain Scale: Adult hb ED Course: 11:04 Patient arrived in ED. im 11:05 Magan Viramontes MD is Attending Physician. rn 11:21 Steffany Lau is Primary Nurse. cp4 11:22 Triage completed. hb 11:23 Bed in low position. Call light in reach. Side rails up X 1. cp4 11:57 XRAY Chest Pa And Lat (2 Views) In Process Unspecified. EDMS 12:39 Provided Education on: upper respirator infection. cp4 12:39 No provider procedures requiring assistance completed. Patient did not have IV access cp4 during this emergency room visit. 12:40 Arm band placed on left wrist. Patient placed in the treatment room. cp4 Administered Medications: No medications were administered Medication: 11:23 VIS not applicable for this client. cp4 Outcome: 12:24 Discharge ordered by MD. rn 12:39 Discharged to home ambulatory, cp4 12:39 Condition: stable 12:39 Discharge instructions given to patient, Instructed on discharge instructions, follow up and referral plans. medication usage, Demonstrated understanding of instructions, follow-up care, medications, Prescriptions given X 1, 12:41 Patient left the ED. cp4 Signatures: Dispatcher [employer] EDMS Magan Viramontes MD MD rn Baxter, Heather, RN RN hb Mendoza, Itzel Steffany Lau cp4
[2023-03-28 12:46] VITALS: TEMP 98.2
[2023-03-28 12:48] VITALS: BP 152/67; O2SAT 100
== END 2023-03-28 12:41 | disposition home or self-care (01) ==
LOC: ER 11:00
DX: J06.9 Acute upper respiratory infection, unspecified (principal); Z11.52 Encounter for screening for COVID-19
CPT/HCPCS: 36415; 71046; 87804; 87811; 99283

== ENCOUNTER → 2023-05-19 | Emergency (ER) | payer BC ==
--- OUTSIDE RECORDS SUMMARY | 2023-05-19 19:42 | XMS REPORT | Continuity of Care Document ---
Author Name Unknown Address [address] [facility] [address] [place] [address] [facility] thconnect Address [address] [facility] [address] [place] [address] Care Team Providers Care Warehouseman Name Role Phone Ilia Adorno Attending Clinician Unavailable [email or web address]_S Attending Clinician Unavaila ble [email or web address]_S Admitting Clinician Unavaila ble Payers Payer Name Policy Type Policy Number Effective Date Expirati on Date Source [place] [id number] 2022 00:00:00 Problems Condition Name Condition Details Condition Category Status Onset Date Resolution Date Last Treatment Date Treating Clinician Comments Source Tear of right rotator cuff, unspecifie d tear extent, unspecifie d whether traumatic Tear of right rotator cuff, unspecifie d tear extent, unspecifie d whether traumatic Problem Active [facility] Pain in joint of left wrist Pain in joint of left wrist Diagnosis Active [facility] Sprain of left wrist, initial encounter Sprain of left wrist, initial encounter Diagnosis Active [facility] Allergies, Adverse Reactions, Alerts Allergy Name Allergy Type Status Severity Reaction(s) Onset Date Inactive Date Treating Clinician Comments Source codeine Adverse Reaction Active Info Not Available [facility] Medications Ordered Medication Name Filled Medication Name Start Date Stop Date Current Medication? Ordering Clinician Indication Dosage Frequency Signature (SIG) Comments Components Source Losartan Potassium Losartan Potassium Yes Brendon Dumont not defined [facility] Calcium Calcium Yes Brendon Dumont not defined [facility] Vitamin D Vitamin D Yes Brendon Dumont not defined [facility] ibuprofen ibuprofen Yes Brendon Dumont not defined [facility] Meloxicam Meloxicam Yes Brendon Dumont not defined [facility] Pseudoeph-B romphen-DM Pseudoeph-B romphen-DM Yes Brendon Dumont not defined [facility] MethylPREDN ISolone MethylPREDN ISolone Yes Brendon Dumont not defined [facility] Baclofen Baclofen Yes Brendon Dumont not defined [facility] Cephalexin Cephalexin Yes Brendon Dumont not defined [facility] Benzonatate Benzonatate Yes [facility] Dumont not defined [facility] Alendronate Sodium Alendronate Sodium Yes Brendon Dumont not defined [facility] Azithromyci n Azithromyci n Yes Brendon Dumont not defined [facility] Encounters Start Date/Time End Date/Time Encounter Type Admission Type Attending Clinicians Care Facility Care Department Encounter ID Source 2021-06-23 11:31:20 Outpatient OkosIlia chin [facility] [id number] [facility] 2021-06-23 11:17:08 Outpatient Ilia Adorno [facility] [id number] [facility] 2021-06-23 10:58:50 Outpatient OkosIlia chin [facility] [id number] [facility] 2023-05-17 00:00:00 2023-05-17 00:00:00 Outpatient [email or web address] diyala_S PRIV PRIV [id number] [facility] 2023-05-08 00:00:00 2023-05-08 00:00:00 Outpatient [email or web address] diyala_S PRIV PRIV [id number] [facility] 2023-05-08 00:00:00 2023-05-08 00:00:00 Outpatient GC_GCBZW_Ka diyala_S PRIV PRIV [id number] [facility] 2023-05-08 00:00:00 2023-05-08 00:00:00 Outpatient GC_GCBZW_Ka diyala_S PRIV PRIV [id number] [facility] 2023-05-04 00:00:00 2023-05-04 00:00:00 Outpatient GC_GCBZW_Ka diyala_S PRIV PRIV [id number] [facility] 2023-03-24 00:00:00 2023-03-24 00:00:00 Outpatient GC_GCBZW_Ka diyala_S PRIV PRIV [id number] [facility] 2019-12-10 13:00:00 2019-12-10 13:00:00 [facility] [id number] [facility] 2019-11-04 08:00:00 2019-11-04 08:00:00 [facility] [id number] [facility] 2019-09-03 08:00:00 2019-09-03 08:00:00 [facility] [id number] [facility] 2019-08-22 13:57:00 2019-08-22 13:57:00 [facility] [id number] [facility] 2019-07-30 09:30:00 2019-07-30 09:30:00 [facility] [id number] [facility] 2019-07-23 08:49:00 2019-07-23 08:49:00 [facility] [id number] [facility] 2019-07-19 10:46:00 2019-07-19 10:46:00 [facility] [id number] [facility] 2019-07-01 10:30:00 2019-07-01 10:30:00 [facility] [id number] [facility] 2019-06-27 14:32:00 2019-06-27 14:32:00 [facility] [id number] [facility] 2019-06-17 11:00:00 2019-06-17 11:00:00 [facility] [id number] [facility] 2019-06-05 08:00:00 2019-06-05 08:00:00 [facility] [id number] [facility]
--- NOTE | 2023-05-19 20:41 | ER ---
Nurse's Notes [facility] Name: Jeanette Valencia Age: 62 yrs Sex: Female : 1960 Arrival Date: 05/19/2023 Time: 19:39 Bed DX4 Private MD: Ilia Adorno Diagnosis: Insect bite Presentation: 05/19 19:49 Chief complaint: Patient states: "I THINK I GOT BIT BY A BROWN RECLUCE". Coronavirus bp screen: At this time, the client does not indicate any symptoms associated with coronavirus-19. Ebola Screen: No symptoms or risks identified at this time. Initial Sepsis Screen: Does the patient meet any 2 criteria? No. Patient's initial sepsis screen is negative. Does the patient have a suspected source of infection? No. Patient's initial sepsis screen is negative. Risk Assessment: Do you want to hurt yourself or someone else? Patient reports no desire to harm self or others. Onset of symptoms was May 19, 2023 at 18:00. 19:49 Method Of Arrival: Ambulatory bp 19:49 Acuity: CRISTIAN 5 bp Triage Assessment: 19:49 Bite description: bite sustained to abdomen by an unknown animal, animal information: bp vaccination(s) is not applicable. General: Appears in no apparent distress. Behavior is appropriate for age. Pain: Denies pain. Historical: - Allergies: 19:49 Compazine; bp 19:49 Codeine; bp - PMHx: 19:49 Hypertension; bp - PSHx: 19:49 section; bp - Immunization history:: Adult Immunizations up to date. - Social history:: Smoking status: unknown. Screenin:04 [facility] ED Fall Risk Assessment (Adult) History of falling in the last 3 months, jb4 including since admission No falls in past 3 months (0 pts) Confusion or Disorientation No (0 pts). Abuse screen: Denies threats or abuse. Nutritional screening: No deficits noted. Tuberculosis screening: No symptoms or risk factors identified. Assessment: 21:04 Reassessment: Patient appears in no apparent distress at this time. Patient and/or jb4 family updated on plan of care and expected duration. Pain level reassessed. Patient is alert, oriented x 3, equal unlabored respirations, skin warm/dry/pink. Vital Signs: 19:49 BP 181 / 104; Pulse 79; Resp 16; Temp 97.2; Pulse Ox 97% ; bp ED Course: 19:41 Patient arrived in ED. mr 19:42 Ilia Adorno MD is Private Physician. mr 19:49 Arm band placed on. bp 19:56 Triage completed. bp 20:04 Alexandria Springer MD is Attending Physician. sp3 21:04 Patient has correct armband on for positive identification. Bed in low position. Call jb4 light in reach. Side rails up X 1. 21:04 No provider procedures requiring assistance completed. Patient did not have IV access jb4 during this emergency room visit. Administered Medications: No medications were administered Medication: 21:04 VIS not applicable for this client. jb4 Outcome: 20:40 Discharge ordered by . sp3 21:04 Discharged to home ambulatory, jb4 21:04 Condition: stable 21:04 Discharge instructions given to patient, Instructed on discharge instructions, follow up and referral plans. medication usage, Demonstrated understanding of instructions, follow-up care, medications, Prescriptions given X 1, 21:05 Patient left the ED. jb4 Signatures: Polly Perez, Reg Reg UdayTerry, RN RN jb4 Axel Cai, RN RN bp Alexandria Springer MD MD sp3
--- NOTE | 2023-05-19 20:41 | EDPHYS ---
Physician Documentation [facility] Name: Jeanette Valencia Age: 62 yrs Sex: Female : 1960 Arrival Date: 05/19/2023 Time: 19:39 Bed DX4 Private MD: Ilia Adorno ED Physician Alexandria Springer HPI: 05/19 20:34 This 62 yrs old Female presents to ER via Ambulatory with complaints of Insect Bite. sp3 20:34 62-year-old female with history of hypertension now presents to the ED with chief sp3 complaint "insect bite" on her lower abdomen. Patient states that she is concerned that it is a brown recluse. Patient does not have any necrosis or any systemic symptoms. She denies fever, headache, neck pain, chest pain, shortness of breath, abdominal pain outside of the affected area, nausea, vomiting, diarrhea, bleeding, syncope, near syncope, neurological complaints, or any other signs or symptoms on ROS at this time. Exact time of potential insect bite is unknown however patient first noticed it earlier this morning.. Historical: - Allergies: 19:49 Compazine; bp 19:49 Codeine; bp - PMHx: 19:49 Hypertension; bp - PSHx: 19:49 section; bp - Immunization history:: Adult Immunizations up to date. - Social history:: Smoking status: unknown. ROS: 20:35 Constitutional: Negative for fever, chills, and weight loss, Eyes: Negative for injury, sp3 pain, redness, and discharge, ENT: Negative for injury, pain, and discharge, Neck: Negative for injury, pain, and swelling, Cardiovascular: Negative for chest pain, palpitations, and edema, Respiratory: Negative for shortness of breath, cough, wheezing, and pleuritic chest pain, Back: Negative for injury and pain, MS/Extremity: Negative for injury and deformity, Neuro: Negative for headache, weakness, numbness, tingling, and seizure, Psych: Negative for depression, anxiety, suicide ideation, homicidal ideation, and hallucinations, Allergy/Immunology: Negative for hives, rash, and allergies, Endocrine: Negative for neck swelling, polydipsia, polyuria, polyphagia, and marked weight changes, Hematologic/Lymphatic: Negative for swollen nodes, abnormal bleeding, and unusual bruising, 20:35 All other systems are negative, Exam: 20:38 Constitutional: This is a well developed, well nourished patient who is awake, alert, sp3 and in no acute distress. Head/Face: Normocephalic, atraumatic. Eyes: Pupils equal round and reactive to light, extra-ocular motions intact. Lids and lashes normal. Conjunctiva and sclera are non-icteric and not injected. Cornea within normal limits. Periorbital areas with no swelling, redness, or edema. ENT: Nares patent. No nasal discharge, no septal abnormalities noted. External auditory canals are clear. Oropharynx with no redness, swelling, or masses, exudates, or evidence of obstruction, uvula midline. Mucous membranes moist. Neck: Trachea midline, no thyromegaly or masses palpated, and no cervical lymphadenopathy. Supple, full range of motion without nuchal rigidity, or vertebral point tenderness. No Meningismus. Chest/axilla: Normal chest wall appearance and motion. Nontender with no deformity. No lesions are appreciated. Cardiovascular: Regular rate and rhythm with a normal S1 and S2. No gallops, murmurs, or rubs. Normal PMI, no JVD. No pulse deficits. Respiratory: Lungs have equal breath sounds bilaterally, clear to auscultation and percussion. No rales, rhonchi or wheezes noted. No increased work of breathing, no retractions or nasal flaring. MS/ Extremity: Pulses equal, no cyanosis. Neurovascular intact. Full, normal range of motion. Neuro: Awake and alert, GCS 15, oriented to person, place, time, and situation. Cranial nerves II-XII grossly intact. Motor strength 5/5 in all extremities. Sensory grossly intact. Cerebellar exam normal. Normal gait. Psych: Awake, alert, with orientation to person, place and time. Behavior, mood, and affect are within normal limits. 20:38 Skin: Wound recheck: 1 cm x 1 cm area of erythema with central raised area consistent with possible bite. No purulence noted. No fluctuance noted. No streaking or surrounding edema or erythema noted. Absolutely no necrosis whatsoever.. Vital Signs: 19:49 BP 181 / 104; Pulse 79; Resp 16; Temp 97.2; Pulse Ox 97% ; bp MDM: 20:30 Patient medically screened. sp3 20:39 Data reviewed: vital signs, nurses notes. ED course: Very small insect bite. Bite is sp3 not consistent with brown recluse or other critical necrotic process. Will place patient on Bactrim and safely discharged home at this time.. Administered Medications: No medications were administered Disposition Summary: 05/19/23 20:40 Discharge Ordered Notes: Location: Home sp3 Condition: Stable sp3 Diagnosis - Insect bite sp3 Followup: sp3 - With: Private Physician - When: Upon discharge from the Emergency Department - Reason: Continuance of care Discharge Instructions: - Discharge Summary Sheet sp3 - Insect Bite, Adult sp3 Forms: - Medication Reconciliation Form sp3 - Thank You Letter sp3 - Antibiotic Education sp3 - Prescription Opioid Use sp3 - Patient Portal Instructions sp3 - Leadership Thank You Letter sp3 Prescriptions: - Bactrim DS 800-160 mg Oral Tablet - take 1 tablet ORAL route every 12 hours for 7 days; 14 tablet; Refills: 0, sp3 Product Selection Permitted Signatures: Axel Cai RN RN Alexandria Zavala MD MD sp3
[2023-05-19 22:08] VITALS: BP 181/104; TEMP 97.2; O2SAT 97
== END ==
LOC: ER 19:39
DX: S30.861A Insect bite (nonvenomous) of abdominal wall, initial encounter (principal)
CPT/HCPCS: 99283

== ENCOUNTER → 2023-06-08 | Emergency (ER) | payer BC ==
--- OUTSIDE RECORDS SUMMARY | 2023-06-08 08:40 | XMS REPORT | Continuity of Care Document ---
Author Name Unknown Address [address] [facility] [address] [place] [address] [facility] thconnect Address [address] [facility] [address] [place] [address] Care Team Providers Care Printed Circuit Boards Stripper Etcher Name Role Phone Ilia Adorno Attending Clinician Unavailable [email or web address] Attending Clinician Unavaila ble [email or web address] Admitting Clinician Unavaila ble Payers Payer Name Policy Type Policy Number Effective Date Expirati on Date Source [place] [id number] 2022 00:00:00 Problems Condition Name Condition Details Condition Category Status Onset Date Resolution Date Last Treatment Date Treating Clinician Comments Source Tear of right rotator cuff, unspecifie d tear extent, unspecifie d whether traumatic Tear of right rotator cuff, unspecifie d tear extent, unspecifie d whether traumatic Problem Active [facility] Pain in joint of left wrist Pain in joint of left wrist Diagnosis Active [facility] Sprain of left wrist, initial encounter Sprain of left wrist, initial encounter Diagnosis Active [facility] Allergies, Adverse Reactions, Alerts Allergy Name Allergy Type Status Severity Reaction(s) Onset Date Inactive Date Treating Clinician Comments Source codeine Adverse Reaction Active Info Not Available [facility] Medications Ordered Medication Name Filled Medication Name Start Date Stop Date Current Medication? Ordering Clinician Indication Dosage Frequency Signature (SIG) Comments Components Source Losartan Potassium Losartan Potassium Yes Brendon Dumont not defined [facility] Calcium Calcium Yes Brendon Dumont not defined [facility] Vitamin D Vitamin D Yes Brendon Dumont not defined [facility] ibuprofen ibuprofen Yes Brendon Dumont not defined [facility] Meloxicam Meloxicam Yes Brendon Dumont not defined [facility] Pseudoeph-B romphen-DM Pseudoeph-B romphen-DM Yes Brendon Dumont not defined [facility] MethylPREDN ISolone MethylPREDN ISolone Yes Brendon Dumont not defined [facility] Baclofen Baclofen Yes Brendon Dumont not defined [facility] Cephalexin Cephalexin Yes Brendon Dumont not defined [facility] Benzonatate Benzonatate Yes David s Dumont not defined [facility] Alendronate Sodium Alendronate Sodium Yes Brendon Dumont not defined [facility] Azithromyci n Azithromyci n Yes Brendon Dumont not defined [facility] Encounters Start Date/Time End Date/Time Encounter Type Admission Type Attending Clinicians Care Facility Care Department Encounter ID Source 2021-06-23 11:31:20 Outpatient OkosIlia chin [facility] [id number] [facility] 2021-06-23 11:17:08 Outpatient Ilia Adorno [facility] [id number] [facility] 2021-06-23 10:58:50 Outpatient OkosIlia chin [facility] [id number] [facility] 2023-05-17 00:00:00 2023-05-17 00:00:00 Outpatient [email or web address]_S PRIV PRIV [id number] [facility] 2023-05-08 00:00:00 2023-05-08 00:00:00 Outpatient [email or web address] [email or web address]_S PRIV PRIV [id number] [facility] 2023-05-08 00:00:00 2023-05-08 00:00:00 Outpatient [email or web address] [email or web address]_S PRIV PRIV [id number] [facility] 2023-05-08 00:00:00 2023-05-08 00:00:00 Outpatient [email or web address]_Ka diyala_S PRIV PRIV [id number] [facility] 2023-05-04 00:00:00 2023-05-04 00:00:00 Outpatient [email or web address] diyala_S PRIV PRIV [id number] [facility] 2023-03-24 00:00:00 2023-03-24 00:00:00 Outpatient [email or web address] diyala_S PRIV PRIV [id number] [facility] 2019-12-10 13:00:00 2019-12-10 13:00:00 [facility] [id number] [facility] 2019-11-04 08:00:00 2019-11-04 08:00:00 [facility] [id number] [facility] 2019-09-03 08:00:00 2019-09-03 08:00:00 [facility] [id number] [facility] 2019-08-22 13:57:00 2019-08-22 13:57:00 [facility] [id number] [facility] 2019-07-30 09:30:00 2019-07-30 09:30:00 [facility] [id number] [facility] 2019-07-23 08:49:00 2019-07-23 08:49:00 [facility] [id number] [facility] 2019-07-19 10:46:00 2019-07-19 10:46:00 [facility] [id number] [facility] 2019-07-01 10:30:00 2019-07-01 10:30:00 [facility] [id number] [facility] 2019-06-27 14:32:00 2019-06-27 14:32:00 [facility] [id number] [facility] 2019-06-17 11:00:00 2019-06-17 11:00:00 [facility] [id number] [facility] 2019-06-05 08:00:00 2019-06-05 08:00:00 [facility] [id number] [facility]
[2023-06-08 09:30] LABS: SARS-CoV-2 Antigen Rapid Res Negative (Negative)
--- NOTE | 2023-06-08 10:29 | RAD REPORT ---
EXAM DESCRIPTION: [place] Single View06/08/2023 9:50 am CLINICAL HISTORY: Cough COMPARISON: February 2023 FINDINGS: The lungs appear clear of acute infiltrate. The heart is normal size IMPRESSION: No acute abnormalities displayed
--- NOTE | 2023-06-08 10:46 | ER ---
Nurse's Notes [facility] Name: Jeanette Valencia Age: 62 yrs Sex: Female : 1960 Arrival Date: 06/08/2023 Time: 08:37 Bed 6 Private MD: Diagnosis: Acute upper respiratory infection, unspecified Presentation: 06/08 08:45 Chief complaint: Patient states: cough and runny nose since Monday. aa5 08:45 Coronavirus screen: cough unrelated to allergies. Ebola Screen: Patient denies travel aa5 to an Ebola-affected area in the 21 days before illness onset. Initial Sepsis Screen: Does the patient meet any 2 criteria? No. Patient's initial sepsis screen is negative. Does the patient have a suspected source of infection? No. Patient's initial sepsis screen is negative. Risk Assessment: Do you want to hurt yourself or someone else? Patient reports no desire to harm self or others. Onset of symptoms was May 2023. 08:45 Acuity: CRISTIAN 3 aa5 08:45 Method Of Arrival: Ambulatory aa5 Historical: - Allergies: 08:54 Codeine; aa5 08:54 Compazine; aa5 - Home Meds: 08:54 losartan oral [Active]; aa5 - PMHx: 08:54 Hypertension; aa5 - PSHx: 08:54 section; aa5 - Immunization history:: Adult Immunizations up to date. - Social history:: Smoking status: Patient denies any tobacco usage or history of. - Family history:: not pertinent. - Hospitalizations: : No recent hospitalization is reported. Screenin:59 [facility] ED Fall Risk Assessment (Adult) History of falling in the last 3 months, ld1 including since admission No falls in past 3 months (0 pts). Abuse screen: Denies threats or abuse. Denies injuries from another. Nutritional screening: No deficits noted. Tuberculosis screening: No symptoms or risk factors identified. Assessment: 08:59 General: Appears in no apparent distress. comfortable, Behavior is calm, cooperative, ld1 appropriate for age. Pain: Denies pain. Neuro: Level of Consciousness is awake, alert, obeys commands, Oriented to person, place, time, situation. Cardiovascular: Capillary refill < 3 seconds Patient's skin is warm and dry. Respiratory: Airway is patent Respiratory effort is even, unlabored. Respiratory: Reports cough that is non-productive. GI: Abdomen is flat, non-distended. : No signs and/or symptoms were reported regarding the genitourinary system. EENT: No signs and/or symptoms were reported regarding the EENT system. Derm: No signs and/or symptoms reported regarding the dermatologic system. Musculoskeletal: No signs and/or symptoms reported regarding the musculoskeletal system. Vital Signs: 08:45 BP 154 / 75; Pulse 86; Resp 16 S; Temp 98.1(O); Pulse Ox 100% on R/A; Weight 88.45 kg aa5 (R); Height 5 ft. 0 in. (R); 08:59 BP 154 / 75; Pulse 79; Resp 18; Pulse Ox 98% on R/A; ld1 09:34 BP 134 / 69; Pulse 72; Resp 18; Pulse Ox 98% on R/A; ld1 08:45 Body Mass Index 38.08 (88.45 kg, 152.4 cm) aa5 ED Course: 08:40 Patient arrived in ED. mg5 08:41 Magan Viramontes MD is Attending Physician. rn 08:42 Arm band placed on. aa5 08:54 Lupis Paul RN is Primary Nurse. ld1 08:55 Triage completed. aa5 08:59 Patient has correct armband on for positive identification. Placed in gown. Bed in low ld1 position. Call light in reach. Side rails up X2. hall monitor on. Pulse ox on. NIBP on. 08:59 Strep Sent. ld1 08:59 Flu Sent. ld1 08:59 SARS RAPID Sent. ld1 08:59 No provider procedures requiring assistance completed. Patient did not have IV access ld1 during this emergency room visit. 09:52 XRAY Chest (1 view) In Process Unspecified. EDMS Administered Medications: No medications were administered Medication: 08:59 VIS not applicable for this client. ld1 Outcome: 10:46 Discharge ordered by . rn 11:17 Discharged to home ambulatory, ld1 11:17 Condition: stable 11:17 Discharge instructions given to patient, Instructed on discharge instructions, follow up and referral plans. Demonstrated understanding of instructions, follow-up care, 11:17 Patient left the ED. ld1 Signatures: Dispatcher [employer] EDMS ViramontesMagan MD MD rn Calderon, Audri, RN RN aa5 Lupis Paul RN RN ld1 Yana Queen 5
--- NOTE | 2023-06-08 10:46 | EDPHYS ---
Physician Documentation [facility] Name: Jeanette Valencia Age: 62 yrs Sex: Female : 1960 Arrival Date: 06/08/2023 Time: 08:37 Bed 6 Private MD: ED Physician Magan Viramontes HPI: 06/08 09:15 This 62 yrs old Female presents to ER via Ambulatory with complaints of Flu Symptoms, rn cough. 09:15 The patient or guardian reports cough, flu symptoms. Onset: The symptoms/episode rn began/occurred 2 day(s) ago. Severity of symptoms: At their worst the symptoms were mild, in the emergency department the symptoms are unchanged. Modifying factors: The symptoms are alleviated by nothing, the symptoms are aggravated by nothing. Associated signs and symptoms: Pertinent positives: fever, rhinorrhea, Pertinent negatives: chest pain. The patient has experienced similar episodes in the past. The patient has not recently seen a physician. Historical: - Allergies: 08:54 Codeine; aa5 08:54 Compazine; aa5 - Home Meds: 08:54 losartan oral [Active]; aa5 - PMHx: 08:54 Hypertension; aa5 - PSHx: 08:54 section; aa5 - Immunization history:: Adult Immunizations up to date. - Social history:: Smoking status: Patient denies any tobacco usage or history of. - Family history:: not pertinent. - Hospitalizations: : No recent hospitalization is reported. ROS: 09:15 Constitutional: Positive for fever and chills Eyes: Negative for injury, pain, redness, rn and discharge, ENT: Positive for nasal congestion Cardiovascular: Negative for chest pain, palpitations, and edema, Respiratory: Positive for cough, negative for shortness of breath Abdomen/GI: Negative for abdominal pain, nausea, vomiting, diarrhea, and constipation, MS/Extremity: Negative for injury and deformity, Skin: Negative for injury, rash, and discoloration, Neuro: Negative for headache, weakness, numbness, tingling, and seizure, Exam: 09:15 Constitutional: This is a well developed, well nourished patient who is awake, alert, rn and in no acute distress. Cardiovascular: Regular rate and rhythm. No pulse deficits. Respiratory: No increased work of breathing, no retractions or nasal flaring. Vital Signs: 08:45 BP 154 / 75; Pulse 86; Resp 16 S; Temp 98.1(O); Pulse Ox 100% on R/A; Weight 88.45 kg aa5 (R); Height 5 ft. 0 in. (R); 08:59 BP 154 / 75; Pulse 79; Resp 18; Pulse Ox 98% on R/A; ld1 09:34 BP 134 / 69; Pulse 72; Resp 18; Pulse Ox 98% on R/A; ld1 08:45 Body Mass Index 38.08 (88.45 kg, 152.4 cm) aa5 MDM: 08:41 Patient medically screened. rn 10:45 Differential Diagnosis: Bronchitis Influenza Upper Respiratory Infection Viral Syndrome rn Pneumonia. Data reviewed: vital signs, nurses notes, lab test result(s), radiologic studies, plain films, and as a result, I will discharge patient. Counseling: I had a detailed discussion with the patient and/or guardian regarding the historical points, exam findings, and any diagnostic results supporting the discharge/admit diagnosis, lab results, radiology results, the need for outpatient follow up, to return to the emergency department if symptoms worsen or persist or if there are any questions or concerns that arise at home. Special discussion: I discussed with the patient/guardian in detail that at this point there is no indication for admission to the hospital. It is understood, however, that if the symptoms persist or worsen the patient needs to return immediately for re-evaluation. ED course: COVID/flu/strep negative. Chest x-ray images negative for pneumonia per my interpretation. Will discharge home with return precautions.. 06/08 08:51 Order name: Strep rn 06/08 08:51 Order name: SARS RAPID; Complete Time: 10:00 rn 06/08 08:51 Order name: Flu; Complete Time: 10:00 rn 06/08 09:32 Order name: Throat Culture EDSD 06/08 08:51 Order name: XRAY Chest (1 view); Complete Time: 10:32 rn Administered Medications: No medications were administered Disposition Summary: 06/08/23 10:46 Discharge Ordered Notes: Location: Home rn Problem: new rn Symptoms: have improved rn Condition: Stable rn Diagnosis - Acute upper respiratory infection, unspecified rn Followup: rn - With: Private Physician - When: As needed - Reason: Recheck today's complaints, Re-evaluation by your physician Discharge Instructions: - Discharge Summary Sheet rn - Upper Respiratory Infection, Adult rn - Cough, Adult rn Forms: - Medication Reconciliation Form rn - Thank You Letter rn - Antibiotic controlled atmospheric furnace brazer - Prescription Opioid Use rn - Patient Portal Instructions rn - Leadership Thank You Letter rn Prescriptions: - Zithromax Z-Luciano 250 mg Oral Tablet - take 1 tablet ORAL route as directed for 5 days Day 1 - take two (2) tablets rn one time. Day 2, 3, 4 , 5 take one (1) tablet once daily.; 6 tablet; Refills: 0, Product Selection Permitted Signatures: Dispatcher [employer] Magan Alcantar MD MD rn Calderon, Audri RN RN aa5
[2023-06-08 15:19] VITALS: BP 134/69; TEMP 98.1; O2SAT 98
== END ==
LOC: ER 08:37
DX: J06.9 Acute upper respiratory infection, unspecified (principal); Z11.52 Encounter for screening for COVID-19; Z88.1 Allergy status to other antibiotic agents; Z88.5 Allergy status to narcotic agent
CPT/HCPCS: 36415; 71045; 87070; 87081; 87804; 87811; 99284